=== PATIENT | female | born 1960 | race Caucasian/White ===

== ENCOUNTER 2020-12-10 11:56 | Observation (INO) | payer OTHER ==
[~2020-12-10] VITALS: Ht 144.8 cm; Wt 66.3 kg
[2020-12-10 12:42] LABS: BASOPHILS ABSOLUTE AUTO 0.06 K/mm3 (0.00-0.23); BASOPHILS PERCENT AUTO 1 % (0-2); EOSINOPHILS ABSOLUTE AUTO 0.12 K/mm3 (0.00-0.68); EOSINOPHILS PERCENT AUTO 1 % (0-6); Hematocrit 44.9 % (33.0-51.0); Hemoglobin 14.7 g/dL (11.5-16.0); IMMATURE GRAN ABSOLUTE AUTO 0.02 K/mm3 (0.00-0.10); IMMATURE GRAN PERCENT AUTO 0 % (0-1); LYMPHOCYTES ABSOLUTE AUTO 3.79 K/mm3 (0.84-5.20); LYMPHOCYTES PERCENT AUTO 43 % (21-46); MONOCYTES ABSOLUTE AUTO 0.63 K/mm3 (0.16-1.47); MONOCYTES PERCENT AUTO 7 % (4-13); Mean Corpuscular HGB 30.1 pg (26.0-34.0); Mean Corpuscular HGB Conc 32.7 g/dL (31.5-36.5); Mean Corpuscular Volume 92 fL (80-100); Mean Platelet Volume 12.5 fL (9.1-12.4); NEUTROPHILS ABSOLUTE AUTO 4.15 K/mm3 (1.96-9.15); NEUTROPHILS PERCENT AUTO 47 % (41-73); Platelet Count 205 K/mm3 (150-400); RDW Coefficient Variation 12.4 % (11.7-14.2); RDW Standard Deviation 42.3 fL (35.1-46.3); Red Blood Cell Count 4.89 M/mm3 (3.80-5.20); White Blood Cell Count 8.77 K/mm3 (4.00-11.30)
[2020-12-10 12:52] LABS: Alanine Aminotransfer (ALT/SGP 32 U/L (12-78); Albumin, Blood 3.4 g/dL (3.4-5.0); Albumin/Globulin Ratio 0.8 (0.8-1.8); Alk Phos 146 U/L (50-136); Anion Gap 7 mmol/L (6-16); Aspartate Aminotrans (AST/SGOT 30 U/L (12-37); Bilirubin, Total 0.7 mg/dL (0.1-1.0); Blood Urea Nitrogen 12 mg/dL (8-24); Bun/Creatinine Ratio 17.4 (12.0-20.0); CO2, Blood 22 mmol/L (21-32); Calcium, Blood 8.7 mg/dL (8.5-10.1); Chloride, Blood 111 mmol/L (98-108); Creatinine, Blood 0.69 mg/dL (0.40-1.00); Globulin, Blood 4.5 g/dL (2.2-4.0); Glomerular Filtration Rate >60 (60-); Glucose, Blood 165 mg/dL (70-99); Potassium, Blood 4.3 mmol/L (3.5-5.5); Sodium, Blood 140 mmol/L (136-145); Total Protein, Blood 7.9 g/dL (6.4-8.2); Troponin I <0.015 ng/mL (0.000-0.040)
[2020-12-10] MEDS ORDERED: ATOR80 PO (13:52)
[2020-12-10] MEDS ORDERED: TICA90TA PO (13:52)
[2020-12-10] MEDS ORDERED: Aspir 8181 MG PO (13:52)
[2020-12-10] MEDS ORDERED: METF500 PO (13:53)
[2020-12-10] MEDS ORDERED: ESTR2 PO (13:53)
[2020-12-10] MEDS ORDERED: IRBE75 PO (13:53)
[2020-12-10] MEDS ORDERED: Isosorbide Mono30 MG PO (13:53)
[2020-12-10] MEDS ORDERED: MIRT15 (13:54)
[2020-12-10] MEDS ORDERED: MIRT15 PO (13:54)
[2020-12-10] MEDS ORDERED: NITR.4SL SL (13:54)
[2020-12-10] MEDS ORDERED: PANT40 PO (13:54)
[2020-12-10] MEDS ORDERED: Inderal60 MG PO (13:55)
[2020-12-10] MEDS ORDERED: TRAZ50 PO (13:55)
[2020-12-10] MEDS ORDERED: RANO500T PO (13:55)
--- NOTE | 2020-12-10 16:33 | NUR ---
Echocardiogram completed.
--- NOTE | 2020-12-10 19:45 | NUR ---
SHIFT SUMMARY- PT ADMITTED THROUGH THE ED. PLAN IS FOR HER TO HAVE A CARDIAC STRESS TEST TOMORROW. PT BP LOW ON ARRIVAL AFTER VITALS WERE TAKEN PT STATES SHE HAS STENTS IN BOTH ARMS AND LEGS. PLAN TO USE FOREARM CUFF UNTIL WE SPEAK TO DR. CALLED DR BANDA FOR PARAMETERS FOR BP MEDS SBP WAS LESS THAN 100 ON ARRIVAL AND SEVERAL TIMES IN THE ED SBP WAS LESS THAN 100 PER REPORT. NO ANSWER LEFT A MESSAGE FOR A CALL BACK BUT IT WAS END OF SHIFT. PASSED ON TO NIGHT RN TO CALL NIGHT HOSPITALIST FOR PARAMETERS AND TO DETERMINE IF UPPER ARM BP CHECK IS OK IF THE PT HAS STENTS SHE STATED. NIGHT RN AWARE. PT IN BED SITTING UP TELE IN PLACE SBR AT 55 ON ARRIVAL. NO S&S OF DISTRESS NOPTED AT THE TIME OF SHIFT CHANGE.
--- NOTE | 2020-12-10 20:19 | NUR ---
pt states she is having chest tightness/pain /10 as well as a headache. pt states this has been going on for 4 days and is nothing new. pt is clammy but states it's getting better. vss. sr in the high 60's per television operator. iv morphine given. wcc.
[2020-12-11 02:10] LABS: BASOPHILS ABSOLUTE AUTO 0.06 K/mm3 (0.00-0.23); BASOPHILS PERCENT AUTO 1 % (0-2); EOSINOPHILS ABSOLUTE AUTO 0.17 K/mm3 (0.00-0.68); EOSINOPHILS PERCENT AUTO 2 % (0-6); Hematocrit 40.7 % (33.0-51.0); Hemoglobin 13.5 g/dL (11.5-16.0); IMMATURE GRAN ABSOLUTE AUTO 0.01 K/mm3 (0.00-0.10); IMMATURE GRAN PERCENT AUTO 0 % (0-1); LYMPHOCYTES ABSOLUTE AUTO 4.38 K/mm3 (0.84-5.20); LYMPHOCYTES PERCENT AUTO 57 % (21-46); MONOCYTES ABSOLUTE AUTO 0.53 K/mm3 (0.16-1.47); MONOCYTES PERCENT AUTO 7 % (4-13); Mean Corpuscular HGB 30.5 pg (26.0-34.0); Mean Corpuscular HGB Conc 33.2 g/dL (31.5-36.5); Mean Corpuscular Volume 92 fL (80-100); Mean Platelet Volume 11.9 fL (9.1-12.4); NEUTROPHILS PERCENT AUTO 34 % (41-73); Platelet Count 156 K/mm3 (150-400); RDW Coefficient Variation 12.5 % (11.7-14.2); RDW Standard Deviation 42.4 fL (35.1-46.3); Red Blood Cell Count 4.42 M/mm3 (3.80-5.20); White Blood Cell Count 7.75 K/mm3 (4.00-11.30)
[2020-12-11 02:35] LABS: Alanine Aminotransfer (ALT/SGP 28 U/L (12-78); Albumin, Blood 3.1 g/dL (3.4-5.0); Albumin/Globulin Ratio 0.8 (0.8-1.8); Alk Phos 124 U/L (50-136); Anion Gap 6 mmol/L (6-16); Aspartate Aminotrans (AST/SGOT 23 U/L (12-37); Bilirubin, Total 0.6 mg/dL (0.1-1.0); Blood Urea Nitrogen 16 mg/dL (8-24); Bun/Creatinine Ratio 17.5 (12.0-20.0); CHOL/HDL RATIO 4.5; CO2, Blood 24 mmol/L (21-32); Calcium, Blood 8.7 mg/dL (8.5-10.1); Chloride, Blood 110 mmol/L (98-108); Cholesterol 140 mg/dL (50-200); Creatinine, Blood 0.91 mg/dL (0.40-1.00); Globulin, Blood 3.9 g/dL (2.2-4.0); Glomerular Filtration Rate >60 (60-); Glucose, Blood 130 mg/dL (70-99); HDL Cholesterol 31 mg/dL (>39); LDL/HDL RATIO 1.9; Low Density Lipoprotein Chol 58 mg/dL (0-110); Sodium, Blood 140 mmol/L (136-145); Triglycerides 256 mg/dL (30-160); Very Low Density Lipoprot Chol 51 mg/dL (6-32)
--- NOTE | 2020-12-11 06:12 | NUR ---
SENIOR ADVOCATE SUMMARY PT A/O X4. INDEPENDENT IN ROOM. PT HAD UNTOLERABLE CHEST PAIN X2 OVERNIGHT. MEDICATED WITH IV MORPHINE WHICH HAS HELPED STATED PATIENT. PT STATES SHE HAS CHRONIC CHEST PAIN WITH HX OF MULTIPLE STENTS. PT SOMETIMES GETS CLAMMY WHEN THIS HAPPENS. DENIES RADIATION TO JAW OR SHOULDER. SR IN THE 60'S PER MELTER ASSISTANT. NPO SINCE MIDNIGHT PER MD ORDER. RESTING IN BED WITH EYES CLOSED. CALL LIGHT WITHIN REACH.
--- NOTE | 2020-12-11 17:51 | NUR ---
FIRST PART OF STRESS TEST COMPLETED TODAY, PLAN IS FOR NO CAFFEINE AFTER 2000 AND NPO AFTER MIDNIGHT, PART TWO OF STRESS TEST AT 0800. FAMILY AND PHYSCIAN AWARE. MEDICATED FOR C.P. WITH IV MORPHINE X1 TODAY. NO ACUTE CHANGES NOTED THIS SHIFT, WILL CONTINUE TO MONITOR AND REPORT TO ONCOMING RN
--- NOTE | 2020-12-12 04:27 | NUR ---
ENROLLMENT SPECIALIST SUMMARY PT A&OX4, ABLE TO MAKE NEEDS KNOWN, PLEASANT AND COOPERATIVE TO CARE. PT MEDICATED W/ MORPHINE X1 FOR 5/10 CP THIS SHIFT, PT REPORTED IMMEDIATE RELIEF AFTER MED WAS GIVEN. PT VSS, HRR, TELE NSR 60's. PT CALM AND RESTED IN BED T/O SHIFT. NO C/O SOB OR N&V. PT NPO SINCE MIDNIGHT FOR SCHEDULED 2ND PART OF STRESS TEST TODAY AT 0800. PT CURRENTLY ASLEEP AT THIS TIME. INDEPENDENT IN ROOM. CALL LIGHT WITHIN REACH.
--- NOTE | 2020-12-12 16:18 | NUR ---
DISCHARGE NOTE PT IS A&O AND WAS ABLE TO MAKE NEEDS KNOWN. PT HAD A STRESS TEST IN THE MORNING. AFTER TEST PT REPORTED FEELING NAUSEA. TREATED PER EMAR. PT COMPAINED OF CHEST PAIN OF 4 AND WAS MEDICATED FOR PAIN TWO TIMES THIS SHIFT. REMOVED PT IV, PT TOLERATED IT WELL. WENT OVER D/C PACKET WITH PT AND HELPED HER IN TO WHEEL CHAIR. PT TAKEN OFF FLOOR BY FAMILY AND DIVORCE LEGAL ASSISTANT AND FAMILY MEMBER DROVE HER HOME.
== END 2020-12-12 15:20 | disposition home or self-care (01) ==
LOC: ER 11:56 → MEDS 11:57 → ERHOLD 11:57 → MEDS 17:24
PROVIDERS: Emergency Medicine; ADMIT Internal Medicine
DX: I25.119 Atherosclerotic heart disease of native coronary artery with unspecified angina pectoris (principal); E11.51 Type 2 diabetes mellitus with diabetic peripheral angiopathy without gangrene; I11.9 Hypertensive heart disease without heart failure; E78.5 Hyperlipidemia, unspecified; I25.2 Old myocardial infarction; G47.00 Insomnia, unspecified; F17.210 Nicotine dependence, cigarettes, uncomplicated; Z95.5 Presence of coronary angioplasty implant and graft; Z79.82 Long term (current) use of aspirin; Z79.84 Long term (current) use of oral hypoglycemic drugs
CPT/HCPCS: 36415; 71046; 78452; 80053; 80061; 82947; 83690; 84484; 85025; 93005; 93010; 93017; 93306; 96372; 96374; 96375; 96376; 99285-25; A9270; A9500; G0378; J0706; J1644; J2270; J2405; J2785; J3010

== ENCOUNTER 2021-02-18 08:44 | Day surgery (SDC) | payer OTHER ==
[~2021-02-18] VITALS: Ht 144.8 cm; Wt 62.7 kg
[~2021-02-18 08:44] MED LIST: ATOR80 PO; Aspir 8181 MG PO; ESTR2 PO; IRBE75 PO; Inderal60 MG PO; Isosorbide Mono30 MG PO; METF500 PO; MIRT15; MIRT15 PO; NITR.4SL SL; PANT40 PO; RANO500T PO; TICA90TA PO; TRAZ50 PO
[2021-02-18] MEDS ORDERED: ESTR2 PO (09:31)
[2021-02-18] MEDS ORDERED: METO25ER PO (09:32)
[2021-02-18] MEDS ORDERED: JARDIANCE10 MG PO (09:33)
--- NOTE | 2021-02-18 13:50 | NUR ---
LEFT POST TIBIAL SHEATH REMOVED, MANUAL PRESSURE BEING HELD BY RT. RAISA
--- NOTE | 2021-02-18 14:20 | NUR ---
HEMOSTASIS OBTAINED AFTER 22 MINUTES OF MANUAL PRESSURE HOLD. HUMBERTO PAD AND CLEAR TEGADERM INTACT ON LEFT POST TIB ACCESS SITE. SOFT NON TENDER WITH NO BLEEDING OR OOZING NOTED. PT APPEARS TO BE DROWSY, RESPONDS TO VERBAL STIMULI. RIGHT GROIN SITE WITH ANGIOSEAL DEVICE IN. SITE ALSO SOFT WITH NO BLEEDING. PT APPEARS TO BE RESTING WITH EYES CLOSED, IN SUPINE POSITION, BED IN REVERSE TRENDELENBERG POSITION. CALL LIGHT IN REACH.
--- NOTE | 2021-02-18 16:49 | NUR ---
PT SITTING UP RIGHT, EATING, TOLERATES WITH NO DIFFICULTIES. RIGHT GROIN SITE AND LEFT PEDAL SITE BOTH SOFT NON TENDER WITH NO BLEEDING NOTED. PT FAMILY CALLED TO SET UP A RIDE HOME. CHERRI [place] AT BEDSIDE TO EVALUATE AND DISCUSS PROCEDURE RESULTS WITH PT.
--- NOTE | 2021-02-18 17:26 | NUR ---
PT VERBALIZED UNDERSTANDING OF D/C INSTRUCTIONS, PAPERWORK PROVIDED IN FOLDER. IV REMOVED WITH CATH INTACT. FAMILY ARRIVES TO DRIVE PT HOME. PT AMBULATES WITH SLOW STEADY GAIT, BOTH ARTERIAL SITES APPEAR TO BE SOFT NON TENDER WITH NO BLEEDING OR OOZING NOTED.
== END 2021-02-18 23:21 | disposition home or self-care (01) ==
LOC: MHTC 08:44
DX: E11.51 Type 2 diabetes mellitus with diabetic peripheral angiopathy without gangrene (principal); I70.213 Atherosclerosis of native arteries of extremities with intermittent claudication, bilateral legs; I10 Essential (primary) hypertension; E78.5 Hyperlipidemia, unspecified; F17.210 Nicotine dependence, cigarettes, uncomplicated; Z79.82 Long term (current) use of aspirin
CPT/HCPCS: 37220; 37222; 37225; 75625; 75710; 75716; 76937; 85347; 99152; 99153; C1714; C1725; C1769; C1887; C1894; C2623; J1644; J2250; J3010; J7030; J7050; Q9967

== ENCOUNTER 2021-04-06 08:52 | Day surgery (SDC) | payer OTHER ==
[~2021-04-06] VITALS: Ht 144.8 cm; Wt 68.0 kg
[~2021-04-06 08:52] MED LIST changes: +JARDIANCE10 MG PO; +METO25ER PO
[2021-04-06] MEDS ORDERED: PROP60 PO (09:26)
[2021-04-06] MEDS ORDERED: BUPROPION XL150 M1 PO (09:27)
--- NOTE | 2021-04-06 15:10 | NUR ---
ASSUMING CARE OF PT-SBAR RECIEVED FROM VENTURA Gonzalez RN.
--- NOTE | 2021-04-06 17:05 | NUR ---
HOB UP 30 DEGREES. LEFT GROIN STABLE, BILATERAL PEDAL ACCESSES STABLE, NO BLEEDING. HUMBERTO/TEGADERM DRESSINGS IN PLACE. CALL LIGHT IN REACH. VVS
--- NOTE | 2021-04-06 17:12 | NUR ---
DINNER TRAY SERVED AND SET UP FOR THE PATIENT. SELF FEEDING.
--- NOTE | 2021-04-06 18:45 | NUR ---
DISCHARGE PT REMAINED A&OX3 AND DENIED ANY PAIN DURING RECOVERY. BILATERAL PEDAL AND R GROIN SITES REMAIN CDI-NO HEMATOMA NOTED. PT ABLE TO DRESS SELF INDEPENDANTLY. DISCHARGE PAPERWORK GONE OVER WITH PT. PT VERBALLY STATED THE UNDERSTANDING OF THE DISCHARGE EDUCATION AND DENIED ANY QUESTIONS AT THIS TIME. PT WHEELED OUT BY THIS NURSE.
== END 2021-04-06 22:52 | disposition home or self-care (01) ==
LOC: MHTC 08:52
DX: E11.51 Type 2 diabetes mellitus with diabetic peripheral angiopathy without gangrene (principal); I70.213 Atherosclerosis of native arteries of extremities with intermittent claudication, bilateral legs; I20.8 Other forms of angina pectoris; I83.813 Varicose veins of bilateral lower extremities with pain; I10 Essential (primary) hypertension; E78.5 Hyperlipidemia, unspecified; F17.210 Nicotine dependence, cigarettes, uncomplicated; Z88.6 Allergy status to analgesic agent; Z88.8 Allergy status to other drugs, medicaments and biological substances; Z91.018 Allergy to other foods
CPT/HCPCS: 37224; 37227; 75625; 75710; 75716; 76937; 85347; 99152; 99153; C1714; C1725; C1760; C1769; C1874; C1887; C1894; C2623; J1644; J2060; J2250; J3010; J7030; J7050; Q9967

== ENCOUNTER → 2021-04-20 | Outpatient (CLI) | payer OTHER ==
[~2021-04-20] MED LIST changes: +BUPROPION XL150 M1 PO; +PROP60 PO
== END | disposition home or self-care (01) ==
LOC: PLD 14:03 → LAB SHORT 14:03
DX: L82.1 Other seborrheic keratosis (principal)
CPT/HCPCS: 88305

== ENCOUNTER 2021-05-13 06:47 | Observation (INO) | payer OTHER ==
[~2021-05-13] VITALS: Ht 144.8 cm; Wt 64.3 kg
--- NOTE | 2021-05-13 15:02 | NUR ---
ANGIO PT ARRIVED FROM HEART CENTER TO PCU THIS AFTERNOON. PT HAS A RIGHT RADIAL ACCESS SITE THAT DEVELOPED A HEMATOMA UPON ARRIVAL TO PCU, DEBT RECOVERY OFFICERSHANE FROM H.C. PLACED A SECOND TR BAND ON THE WRIST WE HELD PRESSURE. PT DEVELOPED CP WITH THE HEMATOMA AND WAS GIVEN MORPHINE FOR THE PAIN. PT ALSO HAS A LEFT GROIN SITE WHICH HAS AN INTERNAL ANGIOSEAL AND HAS TEGADERM CHG COVERING THE SITE. VS HAVE BEEN STABLE; PT ON RA AND IN NSR HR 80s. PT IS ALERT AND ORIENTED BUT CONTINUES TO HAVE PAIN
--- NOTE | 2021-05-13 18:50 | NUR ---
SHIFT SUMMARY PT ARRIVED FROM HEART CENTER THIS AFTERNOON. PT HAD A LARGE HEMATOMA FORMING AT THE RIGHT RADIAL SITE, A SECOND TR BAND WAS PLACED AND PRESSURE WAS HELD OVER THE SITE WELL. CARDIOLOGY WAS NOTIFIED AND CAME TO SEE THE SITE AND DETERMINED THAT IT WAS A HEMATOMA AND TO SLOWLY DEFLATE AND REMOVE THE TR BANDS. THE SECOND TR BAND HAS BEEN FULLY DEFLATED BUT NOT REMOVED, THE FIRST IS STILL FULLY INFLATED AND THIS HAS BEEN COMMUNICATED TO NOC SHIFT TO CONTINUE RECOVERY. PT HAS A LEFT GROIN SITE WELL, IT HAS AN ANGIOSEAL AND TEG CHG DRESSING, SCANT AMOUNT OF DRAINAGE, IS IT SOFT BUT IS TENDER WITH SOME BLUE/PURPLE ECCYMOSIS DEVELOPING. VS STABLE, PT ON RA. PT DENIES CP AT THIS TIME, BUT IT DOES COME INTERMITTENTLY. PT RESTING IN BED AT THIS TIME
--- NOTE | 2021-05-14 05:10 | NUR ---
SHIFT SUMMARY PT AXO, PLEASANT. IN SR, WITH NO CHANGES TO TELE NOTED. PT INTERMITTENTLY HAVING MODERATE - SEVERE CP, MORPHINE HELPFUL IN ALLEVIATING THIS PAIN. L GROIN VASCULAR SITE WITH ECCHYMOSIS BUT NO HEMATOMA. L GROIN ARTERIAL SITE PRESENTS THE SAME. R ULNAR SITE COMPLETELY RECOVERED W/OUT INCIDENT THIS SHIFT. BOTH TR BANDS HAVE BEEN REMOVED, PT DENIED NUMBNESS TINGLING DISTAL BAND AND PULSES STRONG AND PALPABLE. PT NPO SINCE MIDNIGHT FOR UPCOMING ANGIOGRAM IN AM. OTHERWISE, PT HAVING DIFFICULT TIME SLEEPING DESPITE TRAZODONE DOSING. OTHERWISE, PT USING CALL LIGHT APPROPRIATELY. UP TO BATHROOM W/OUT INCIDENT. WILL CONTINUE TO MONITOR.
[2021-05-14 05:42] LABS: BASOPHILS ABSOLUTE AUTO 0.03 K/mm3 (0.00-0.23); BASOPHILS PERCENT AUTO 0 % (0-2); EOSINOPHILS ABSOLUTE AUTO 0.03 K/mm3 (0.00-0.68); EOSINOPHILS PERCENT AUTO 0 % (0-6); Hematocrit 34.8 % (33.0-51.0); Hemoglobin 11.3 g/dL (11.5-16.0); IMMATURE GRAN ABSOLUTE AUTO 0.01 K/mm3 (0.00-0.10); IMMATURE GRAN PERCENT AUTO 0 % (0-1); LYMPHOCYTES ABSOLUTE AUTO 1.83 K/mm3 (0.84-5.20); LYMPHOCYTES PERCENT AUTO 27 % (21-46); MONOCYTES ABSOLUTE AUTO 0.59 K/mm3 (0.16-1.47); MONOCYTES PERCENT AUTO 9 % (4-13); Mean Corpuscular HGB 30.2 pg (26.0-34.0); Mean Corpuscular HGB Conc 32.5 g/dL (31.5-36.5); Mean Corpuscular Volume 93 fL (80-100); Mean Platelet Volume 12.2 fL (9.1-12.4); NEUTROPHILS ABSOLUTE AUTO 4.37 K/mm3 (1.96-9.15); NEUTROPHILS PERCENT AUTO 64 % (41-73); Platelet Count 151 K/mm3 (150-400); RDW Coefficient Variation 12.9 % (11.7-14.2); RDW Standard Deviation 44.2 fL (35.1-46.3); Red Blood Cell Count 3.74 M/mm3 (3.80-5.20); White Blood Cell Count 6.86 K/mm3 (4.00-11.30)
[2021-05-14 06:01] LABS: Anion Gap 4 mmol/L (6-16); Blood Urea Nitrogen 14 mg/dL (8-24); Bun/Creatinine Ratio 18.7 (12.0-20.0); CO2, Blood 23 mmol/L (21-32); Calcium, Blood 8.2 mg/dL (8.5-10.1); Chloride, Blood 112 mmol/L (98-108); Creatinine, Blood 0.75 mg/dL (0.40-1.00); Glomerular Filtration Rate >60 (60-); Glucose, Blood 121 mg/dL (70-99); Potassium, Blood 3.9 mmol/L (3.5-5.5); Sodium, Blood 139 mmol/L (136-145)
--- NOTE | 2021-05-14 10:31 | NUR ---
CARDIOLOGY CONSULT PT WAS VISITED BY DR OVERTON THIS MORNING WHO HAS DETERMINED THAT THE CHEST PAIN IS NOT CARDIAC RELATED. THE PT REPORTS HAVING THIS CONSTANT CHEST PAIN FOR 5 YEARS WITH NO RELIEF WITH MEDICATION. PT HAS SIGNIFICANT CARDIAC HISTORY, STENT PLACEMENTS, STEMI, CAD. PT HAD ANGIO YESTERDAY AND HAS A RADIAL SITE WELL A FEM SITE. THE FEM SITE HAS SOME SWELLING AND SIGNIFICANT BRUISING BUT NO DRAINAGE AND IS SOFT. CARDIOLOGY IS NOT RECCOMENDING ANGIO OR OPEN SURGERY AT THIS TIME BUT HAS INSTEAD CONSULTED A HOSPITALIST. DR VALDIVIA HAS BEEN NOTIFIED
--- NOTE | 2021-05-14 18:48 | NUR ---
SHIFT SUMMARY PT HAS CONTINUED TO HAVE INTERMITTENT CHEST PAIN. PT REFUSED HER IMDUR AND RENEXA THIS MORNING STATING "I HAVE A TOLERANCE TO THOSE MEDS, I'VE BEEN ON THEM FOR 5 YEARS, THEY DON'T WORK ANY MORE." PT HAS BEEN STARTED ON ROXICODONE FOR PAIN. CARDIOLOGY SAW THE PT THIS MORNING AND REQUESTED A HOSPITALIST CONSULT TO DO A NON-CARDIAC WORK UP OF THE CP SINCE IT HAS BEEN CONSTANT FOR 5 YEARS. PT WAS GIVEN A GI COCKTAIL THIS AFTERNOON SEPARATE FROM PAIN MEDICATION, PT REPORTED HER PAIN AT A 6 IN HER CHEST PRIOR TO THE GI COCKTAIL, APPROXIMATELY TWO HOURS AFTER SHE REPORTED HER CP BEING UNCHANGED. PT THEN REQUESTED THE ROXICODONE AGAIN STATING THAT IT WAS VERY HELPFUL. PT HAD A CT PE STUDY COMPLETED TODAY. TROP IS SLIGHTLY ELEVATED, BP IS SOFT, PT ON RA. PT IS RESTING IN BED AT THIS TIME
--- NOTE | 2021-05-15 04:51 | NUR ---
SHIFT SUMMARY NO ACUTE CHANGES THIS SHIFT. VSS. NO CHANGES TO TELE NOTED. PT CONTINUES WITH, AT TIMES, SEVERE CP. PT NEVER CALLS FOR PAIN MEDS BUT THIS RN WILL WALK IN TO PT CLUTCHING CHEST. WHEN ASKED OF SHE NEEDS PAIN MEDS, PT NODS YES. PT STATES SHE MAY LEAVE TODAY DEPENDING ON DOCTORS DESPITE CP. PT FEELS CP IS STILL CARDIAC RELATED DESPITE WHAT DR OVERTON BIOTECHNICIAN STATED IN PREVIOUS DAYS CONVERSATION. OTHERWISE, PT'S ANGIO SITES ARE ALL HEALING WELL, EXXHYMPOSIS NOTED BUT NO HEMATOMAS. PT RESTING OFF AND ON WHEN NOT IN PAIN. WILL CONTINUE TO MONITOR UNTIL SHIFT CHANGE.
[2021-05-15 06:26] LABS: Hematocrit 34.4 % (33.0-51.0); Hemoglobin 11.1 g/dL (11.5-16.0); Mean Corpuscular HGB 30.7 pg (26.0-34.0); Mean Corpuscular HGB Conc 32.3 g/dL (31.5-36.5); Mean Corpuscular Volume 95 fL (80-100); Mean Platelet Volume 12.3 fL (9.1-12.4); Platelet Count 117 K/mm3 (150-400); RDW Coefficient Variation 12.9 % (11.7-14.2); RDW Standard Deviation 45.1 fL (35.1-46.3); Red Blood Cell Count 3.62 M/mm3 (3.80-5.20); White Blood Cell Count 5.26 K/mm3 (4.00-11.30)
[2021-05-15 06:55] LABS: Anion Gap 7 mmol/L (6-16); Blood Urea Nitrogen 18 mg/dL (8-24); Bun/Creatinine Ratio 21.4 (12.0-20.0); CO2, Blood 22 mmol/L (21-32); Calcium, Blood 8.1 mg/dL (8.5-10.1); Chloride, Blood 111 mmol/L (98-108); Creatinine, Blood 0.84 mg/dL (0.40-1.00); Glomerular Filtration Rate >60 (60-); Glucose, Blood 99 mg/dL (70-99); Potassium, Blood 3.8 mmol/L (3.5-5.5); Sodium, Blood 140 mmol/L (136-145); Troponin I 0.157 ng/mL (0.000-0.040)
[2021-05-15 07:08] LABS: BASOPHILS PERCENT MAN 2 % (0-2); EOSINOPHILS PERCENT MAN 2 % (0-6); LYMPHOCYTES PERCENT MAN 59 % (21-46); MONOCYTES ABSOLUTE MAN 0.26 K/mm3 (0.16-1.47); MONOCYTES PERCENT MAN 5 % (4-13); NEUTROPHILS ABSOLUTE MAN 1.68 K/mm3 (1.96-9.15); SEG NEUTROPHILS PERCENT MAN 32 % (41-73); TOTAL CELLS COUNTED 100
--- NOTE | 2021-05-15 08:00 | NUR ---
PT LAYING ON BED, AWAKE A/OX3, COOPERATION WITH CARE, FOLLOWS COMMANDS WELL, REPORTS CHEST PAIN THAT SHE HAS BEEN DEALING WITH FOR SIX YRS. WILL MEDICATE FOR PAIN, LUNGS ARE CLEAR T/O, RESP EVEN AND UNLABORED, NO COUGH NOTED, HRR, TELE IN PLACE RUNNING SR IN THE 80'S, NO EDEMA NOTED, PPP+2, CAP REFILL <3SEC, VS STABLE, AFEBRILE, IV SITE IS CLEAR AND PANTENT, BTX4, ABD FLAT SOFT NONTENDER, VOIDS WITHOUT DIFF, SKIN C/W/D, MAEW, VIKAS, CALL LIGHT IN REACH.
--- NOTE | 2021-05-15 13:09 | NUR ---
PT IS BEING DISCHARGED TO HOME, HER CATH SITE TO HER RIGHT ARM IS A BIT SWOLLEN BUT NO LEAKING, DENIES NUMBNESS/TINGLING TO FINGERS, OCCLUSIVE DRESSING TO JUANA SITE, SITES TO RIGHT AND LEFT GROIN ARE VERY BRUISED AND LEFT IS AMANDA TENDER, BUT SITE IS NOT HARD OR LEAKING. SHE KNOWS SHE IS DISCHARGED AND HAPPY TO GO HOME. CALL LIGHT IN REACH.
--- NOTE | 2021-05-15 13:55 | NUR ---
IV WAS REMOVED INTACT, WENT OVER DISCHARGE INSTRUCTIONS WITH HER , SHE VERBALIZED UNDERSTANDING, ONE MEDICATION FOR OXYCODONE THAT WAS GIVEN TO HER, OTHERWISE HER SAME HOME REGIMEN, LEFT VIA WHEELCHAIR WITH TAXATION ECONOMIST IN ATTENDENCE.
== END 2021-05-15 13:55 | disposition home or self-care (01) ==
LOC: MHTC 06:47 → PCU 12:49 → MHTC 12:50 → PCU 12:50 → MHTC 05-15 11:38 → PCU 05-15 11:42
PROVIDERS: Internal Medicine; Internal Medicine Cardiovascular Disease
PROC: 027034Z Dilation of Coronary Artery, One Artery with Drug-eluting Intraluminal Device, Percutaneous Approach (ICD-10-PCS; principal; 2021-05-15)
PROC: B2111ZZ Fluoroscopy of Multiple Coronary Arteries using Low Osmolar Contrast (ICD-10-PCS; 2021-05-15)
DX: T82.855A Stenosis of coronary artery stent, initial encounter (principal); I25.118 Atherosclerotic heart disease of native coronary artery with other forms of angina pectoris; I25.2 Old myocardial infarction; I10 Essential (primary) hypertension; E78.5 Hyperlipidemia, unspecified; E11.51 Type 2 diabetes mellitus with diabetic peripheral angiopathy without gangrene; G89.4 Chronic pain syndrome; K21.9 Gastro-esophageal reflux disease without esophagitis; Z95.820 Peripheral vascular angioplasty status with implants and grafts; Z88.8 Allergy status to other drugs, medicaments and biological substances; Z88.6 Allergy status to analgesic agent; Z79.82 Long term (current) use of aspirin; Z79.890 Hormone replacement therapy; Z79.899 Other long term (current) drug therapy
CPT/HCPCS: 36415; 71260; 76937; 80048; 83036; 84484; 85025; 85347; 92920; 92921; 93005; 93010; 93454; 96374; 96375; 96376; 99152; 99153; A9270; C1725; C1760; C1769; C1874; C1887; C1894; C9600; G0378; J0461; J1644; J2250; J2270; J2405; J3010; J7030; J7040; J7050; Q9967

== ENCOUNTER 2021-07-27 06:35 | Day surgery (SDC) | payer OTHER ==
[~2021-07-27] VITALS: Ht 144.8 cm; Wt 64.0 kg
[~2021-07-27 06:35] MED LIST changes: +XARELTO20 MG PO
[2021-07-27] MEDS ORDERED: AMLO5 PO (07:05)
[2021-07-27] MEDS ORDERED: ESTR2 PO (07:07)
--- NOTE | 2021-07-27 12:07 | NUR ---
DISCHARGE PT AMBULATES TO RESTROOM AND DRESSED SELF WITH NO COMPLICATIONS. PT WITH L DP ACCESS ONLY. TEGADERM ON ACCESS SITE. NO BLEEDING, OOZING OR HEMATOMA NOTED. PT DENIES ANY PAIN IN HER FOOT BUT DOES REPORT PAIN IN HER L THIGH. MD AWARE. PT INFORMED TO TAKE HER PAIN MEDICATION WHEN SHE IS HOME. PT AGREES TO DO SO. PT STATES HER UNDERSTANDING OD SITE CARE AND DC INSTRUCTIONS AND DENIES ANY QUESTIONS OR CONCERNS UPON DC. VSS. IV DCD WITH CATH IN TACT. PT TAKEN TO EXIT VIA WHEELCHAIR WHERE AUNT WAS WAITING WITH VEHICLE.
== END 2021-07-27 12:00 | disposition home or self-care (01) ==
LOC: MHTC 06:35
DX: E11.51 Type 2 diabetes mellitus with diabetic peripheral angiopathy without gangrene (principal); I70.222 Atherosclerosis of native arteries of extremities with rest pain, left leg; I11.0 Hypertensive heart disease with heart failure; I50.9 Heart failure, unspecified; I25.2 Old myocardial infarction; I25.119 Atherosclerotic heart disease of native coronary artery with unspecified angina pectoris; E78.5 Hyperlipidemia, unspecified; Z87.891 Personal history of nicotine dependence; Z95.9 Presence of cardiac and vascular implant and graft, unspecified; Z79.84 Long term (current) use of oral hypoglycemic drugs; Z88.6 Allergy status to analgesic agent; Z88.8 Allergy status to other drugs, medicaments and biological substances; Z91.018 Allergy to other foods
CPT/HCPCS: 76937; 99152; 99153; C1714; C1725; C1769; C1874; C1887; C1894; C2623; J1644; J2250; J3010; J7030; J7050; Q9967

== ENCOUNTER 2021-09-21 09:59 | Day surgery (SDC) | payer OTHER ==
[~2021-09-21] VITALS: Ht 144.8 cm; Wt 63.0 kg
[~2021-09-21 09:59] MED LIST changes: +AMLO5 PO
[2021-09-21] MEDS ORDERED: OXYC5 PO (11:06)
[2021-09-21] MEDS ORDERED: OXYC10TA19 PO (13:46)
--- NOTE | 2021-09-21 13:47 | NUR ---
PT C/O LEFT LEG PAIN. DR JUÁREZ INFORMED; SEE NEW ORDERS. PT STATES SHE TAKES 10 MG OXYCODONE EVERY SIX HOURS FOR PAIN NEEDED.
--- NOTE | 2021-09-21 14:12 | NUR ---
PT STATES HER LEFT LEG PAIN IS 9/10.
--- NOTE | 2021-09-21 17:05 | NUR ---
PT TO RECOVERY AFTER PROCEDURE. PT AWAKE AND CONVERSING APPROPRIATELY, REPORTS L LEG DISCOMFORT 7/10, REPORTS THIS IS CHRONIC. MONITOR SR 70'S, B/P 116/64, TEMP 99, SPO2 98% RA. L PEDAL ACCESS NO SWELLING/HEMATOMA, HUMBERTO AND TEGADERM DRSG INTACT, DP 1+.
--- NOTE | 2021-09-21 18:45 | NUR ---
PT AMB TO BATHROOM, GAIT STEADY, SITE UNCHANGED. PT DRESSED SELF WITHOUT ISSUE, SITE UNCHANGED, IV REMOVED-CANNULA INTACT.
--- NOTE | 2021-09-21 18:55 | NUR ---
PT AND CAREGIVER RECEIVED DISCHARGE INSTRUCTIONS, MED LIST AND AFTER CARE INSTRUCTIONS; VERBALIZED GOOD UNDERSTANDING. PT LEFT FACILITY VIA W/C, CONDITION STABLE.
== END 2021-09-21 18:55 | disposition home or self-care (01) ==
LOC: MHTC 09:59
DX: E11.51 Type 2 diabetes mellitus with diabetic peripheral angiopathy without gangrene (principal); I70.222 Atherosclerosis of native arteries of extremities with rest pain, left leg; I70.213 Atherosclerosis of native arteries of extremities with intermittent claudication, bilateral legs; I11.0 Hypertensive heart disease with heart failure; I50.9 Heart failure, unspecified; E78.5 Hyperlipidemia, unspecified; Z79.82 Long term (current) use of aspirin; Z79.01 Long term (current) use of anticoagulants; Z87.891 Personal history of nicotine dependence
CPT/HCPCS: 76937; 99152; 99153; A9270; C1725; C1769; C1887; C1894; J1644; J2250; J3010; J7030; J7050; Q9967

== ENCOUNTER 2022-01-03 06:30 | Day surgery (SDC) | payer OTHER ==
[~2022-01-03] VITALS: Ht 144.8 cm; Wt 62.0 kg
[~2022-01-03 06:30] MED LIST changes: +OXYC10TA19 PO; +OXYC5 PO
[2022-01-03] MEDS ORDERED: HYDACE10B PO (06:53)
--- NOTE | 2022-01-03 12:05 | NUR ---
PT ATE LUNCH. UP AND GETTING DRESSED AT THIS TIME. R PT SITE REMAINS STABLE.
--- NOTE | 2022-01-03 12:28 | NUR ---
PT C/O R LOWER LEG PAIN. AWARE 2 HALIE'S GIVEN FOR RIDE HOME. PT DRESSED. DISCHARGE INSTRUCTIONS REVIEWED WITH PT. PT VERBALIZES UNDERSTANDING OF INSTRUCTIONS. SALINE LOCK REMOVED WITH CATHETER INTACT. R PT SITE STABLE. PT TO PRIVATE VEHICLE PER W/C WITH ONE STAFF.
== END 2022-01-03 12:30 | disposition home or self-care (01) ==
LOC: MHTC 06:30
DX: E11.51 Type 2 diabetes mellitus with diabetic peripheral angiopathy without gangrene (principal); I70.213 Atherosclerosis of native arteries of extremities with intermittent claudication, bilateral legs; E11.69 Type 2 diabetes mellitus with other specified complication; M79.604 Pain in right leg; I11.0 Hypertensive heart disease with heart failure; I50.9 Heart failure, unspecified; Z88.6 Allergy status to analgesic agent; Z91.018 Allergy to other foods; Z87.891 Personal history of nicotine dependence; Z79.01 Long term (current) use of anticoagulants
CPT/HCPCS: 76937; 99152; 99153; A9270; C1714; C1725; C1769; C1887; C1894; C2623; J1644; J2250; J3010; J7030; J7050; Q9967

== ENCOUNTER 2022-01-13 11:23 | Emergency (ER) | payer OTHER ==
[~2022-01-13] VITALS: Ht 144.8 cm; Wt 61.2 kg
[~2022-01-13 11:23] MED LIST changes: +HYDACE10B PO
[2022-01-13] MEDS ORDERED: AMOCLA875 PO (11:43)
[2022-01-13] MEDS ORDERED: CODEINE-GUAIFE120 M1 PO (11:44)
== END 2022-01-13 11:45 | disposition home or self-care (01) ==
LOC: ER 11:23
DX: R05.9 Cough, unspecified (principal); R50.9 Fever, unspecified; R09.81 Nasal congestion; I25.2 Old myocardial infarction; F17.210 Nicotine dependence, cigarettes, uncomplicated; Z98.890 Other specified postprocedural states; Z79.899 Other long term (current) drug therapy; Z88.6 Allergy status to analgesic agent; Z88.8 Allergy status to other drugs, medicaments and biological substances; Z88.5 Allergy status to narcotic agent; Z91.018 Allergy to other foods; Z79.82 Long term (current) use of aspirin
CPT/HCPCS: 99282

== ENCOUNTER 2022-04-03 14:06 | Inpatient (IN) | payer OTHER ==
[~2022-04-03] VITALS: Ht 142.2 cm; Wt 53.2 kg
[~2022-04-03 14:06] MED LIST changes: +AMOCLA875 PO; +CODEINE-GUAIFE120 M1 PO
[2022-04-03 15:45] LABS: BASOPHILS ABSOLUTE AUTO 0.04 K/mm3 (0.00-0.23); BASOPHILS PERCENT AUTO 1 % (0-2); EOSINOPHILS ABSOLUTE AUTO 0.16 K/mm3 (0.00-0.68); EOSINOPHILS PERCENT AUTO 2 % (0-6); Hematocrit 39.3 % (33.0-51.0); Hemoglobin 12.2 g/dL (11.5-16.0); IMMATURE GRAN ABSOLUTE AUTO 0.01 K/mm3 (0.00-0.10); IMMATURE GRAN PERCENT AUTO 0 % (0-1); LYMPHOCYTES PERCENT AUTO 29 % (21-46); MONOCYTES ABSOLUTE AUTO 0.66 K/mm3 (0.16-1.47); MONOCYTES PERCENT AUTO 10 % (4-13); Mean Corpuscular HGB 29.9 pg (26.0-34.0); Mean Corpuscular Volume 96 fL (80-100); Mean Platelet Volume 12.2 fL (9.1-12.4); NEUTROPHILS ABSOLUTE AUTO 3.93 K/mm3 (1.96-9.15); NEUTROPHILS PERCENT AUTO 58 % (41-73); Platelet Count 210 K/mm3 (150-400); RDW Coefficient Variation 15.2 % (11.7-14.2); RDW Standard Deviation 54.4 fL (35.1-46.3); Red Blood Cell Count 4.08 M/mm3 (3.80-5.20)
[2022-04-03 16:08] LABS: Albumin, Blood 2.7 g/dL (3.4-5.0); Albumin/Globulin Ratio 0.5 (0.8-1.8); Bilirubin, Total 0.3 mg/dL (0.1-1.0); Bun/Creatinine Ratio 32.3 (12.0-20.0); Calcium, Blood 8.9 mg/dL (8.5-10.1); Creatinine, Blood 0.37 mg/dL (0.40-1.00); Potassium, Blood 3.8 mmol/L (3.5-5.5); Total Protein, Blood 7.7 g/dL (6.4-8.2)
[2022-04-03] MEDS ORDERED: MIRALAX17 GM PO (18:01)
[2022-04-03] MEDS ORDERED: MELA3 PO (18:01)
[2022-04-03] MEDS ORDERED: LIDO700A20 TOP (18:01)
[2022-04-03] MEDS ORDERED: HYDMOR2 PO (18:01)
[2022-04-03] MEDS ORDERED: LYRICA PO (18:02)
[2022-04-03] MEDS ORDERED: OMEP20ER PO (18:02)
[2022-04-03] MEDS ORDERED: MULVITA PO (18:02)
[2022-04-03] MEDS ORDERED: ACET325 PO (18:03)
[2022-04-04 05:02] LABS: BASOPHILS ABSOLUTE AUTO 0.05 K/mm3 (0.00-0.23); BASOPHILS PERCENT AUTO 1 % (0-2); EOSINOPHILS ABSOLUTE AUTO 0.25 K/mm3 (0.00-0.68); EOSINOPHILS PERCENT AUTO 5 % (0-6); Hematocrit 36.7 % (33.0-51.0); Hemoglobin 11.4 g/dL (11.5-16.0); IMMATURE GRAN ABSOLUTE AUTO 0.01 K/mm3 (0.00-0.10); IMMATURE GRAN PERCENT AUTO 0 % (0-1); LYMPHOCYTES PERCENT AUTO 35 % (21-46); MONOCYTES PERCENT AUTO 12 % (4-13); Mean Corpuscular HGB 30.3 pg (26.0-34.0); Mean Corpuscular HGB Conc 31.1 g/dL (31.5-36.5); Mean Corpuscular Volume 98 fL (80-100); Mean Platelet Volume 12.5 fL (9.1-12.4); NEUTROPHILS ABSOLUTE AUTO 2.44 K/mm3 (1.96-9.15); NEUTROPHILS PERCENT AUTO 47 % (41-73); Platelet Count 169 K/mm3 (150-400); RDW Coefficient Variation 15.1 % (11.7-14.2); RDW Standard Deviation 54.4 fL (35.1-46.3); Red Blood Cell Count 3.76 M/mm3 (3.80-5.20); White Blood Cell Count 5.15 K/mm3 (4.00-11.30)
--- NOTE | 2022-04-04 05:31 | NUR ---
SHIFT SUMMARY: ED ADMIT FOR SURGICAL SITE INFECTION TO LEFT STUMP. PATIENT HAD AMP 03/10. SUTURES IN PLACE, SMALL AMOUNT OF SEROSANGUINEOUS EXTUDATE. PHOTOS TAKEN AND PLACED IN CHART. PATIENT STATES HAVING IT ELMA CAUSING IRRITATION SUTURES GET CAUGH ON LINEN. COVERED WITH ABD PAD AND JOSUE BANDAGE. 07/09 PAIN TO LEFT STUMP STATES MEDICATION GIVEN IN ED HAD NO EFFECT. MD CONTACED PER PATIENT REQUEST TO RESUME HOME PAIN MEDICATION REGIMEN. PATIENT DID SHOW ME PHOTO ON HER PHONE WITH CURRENT MEDICATIONS, MED REC ACCURATE. MD CONTACTED NEW ORDERS OBTAINED. PATIENT NPO SINCE MIDNIGHT FOR ANTICIPATED I&D TODAY. SEE SHIFT ASSESSMENT FOR FURTHER DETAILS.
[2022-04-04 05:36] LABS: Calcium, Blood 8.9 mg/dL (8.5-10.1); Creatinine, Blood 0.39 mg/dL (0.40-1.00); Potassium, Blood 3.3 mmol/L (3.5-5.5)
[2022-04-04 11:51] LABS: Influenza A, PCR NEGATIVE (NEGATIVE); Influenza B, PCR NEGATIVE (NEGATIVE); Resp Syncytial Virus, PCR NEGATIVE (NEGATIVE); SARS-Cov-2 (COVID-19) PCR, MMC NEGATIVE (NEGATIVE)
--- NOTE | 2022-04-04 16:08 | NUR ---
History, Chart, Medications and Allergies reviewed before start of procedure. Lungs clear T/O to Auscultation. Patient confirms NPO status and agrees with scheduled surgery. Pre-Op teaching done. Pt verbalizes understanding.
--- NOTE | 2022-04-04 16:42 | NUR ---
Upon responding to a spiritual care referral, I visit pt. Pt is in surgery and her friend Danni is bedside. I provide therapeutic listening and a calming presence. Danni responds well and shows signs of being comforted.
--- NOTE | 2022-04-04 16:59 | NUR ---
04/04/22 1659 Vivi Villalta NO PREOP ANTIBIOTICS ORDERED PATIENT IS ON SCHEDULED ANTIBIOTICS PER .
--- NOTE | 2022-04-04 18:23 | NUR ---
SHIFT SUMMARY PT AWAKE DURING SHIFT REPORT THIS AM. NPO FOR SX TODAY. DR TEMPLE AND LATER DR ROCHA IN TO SEE PT EARLY. DR HART BY AT LUNCH TIME TO OBTAIN SIGNED CONSENTS. PT TAKEN TO SX FOR I&D OF LLE STUMP AND JUST RETURNED. PT TOLERATED WELL. PER JUAN RN, DR HART OPENED STUMP AND FOUND IT TO BE BETTER THAN ANTICIPATED AND WITH NO BONE INVOLMENT. WOUND VAC PLACED FOR HEALING. IV ABX GIVEN ALL DAY AND TO BE CONTINUED. PT SITTING UP EATING DINNER AT THIS TIME, AND TALKING ON PHONE. NO C/O. DENIED FURTHER NEEDS AT THIS TIME. CALL LT IN REACH.
--- NOTE | 2022-04-05 02:58 | NUR ---
SHIFT SUMMARY: NO SIGNIFICANT EVENTS ON NOC. PAIN TREATED PER EMAR. WOUND VAC TO LEFT STUMP WITH SEROUSANGINEOUS EXUDATE. PATIENT ENDORSES BURNING/PULLING AT INCISION SITE. INTERRUPTED SLEEP DUE TO PAIN. SEE SHIFT ASSESSMENT FOR FURTHER DETAILS.
[2022-04-05 08:23] LABS: Hematocrit 38.9 % (33.0-51.0); Hemoglobin 11.8 g/dL (11.5-16.0); Mean Corpuscular HGB 29.8 pg (26.0-34.0); Mean Corpuscular HGB Conc 30.3 g/dL (31.5-36.5); Mean Corpuscular Volume 98 fL (80-100); Mean Platelet Volume 12.3 fL (9.1-12.4); Platelet Count 200 K/mm3 (150-400); RDW Coefficient Variation 14.9 % (11.7-14.2); RDW Standard Deviation 53.7 fL (35.1-46.3); Red Blood Cell Count 3.96 M/mm3 (3.80-5.20)
[2022-04-05 08:32] LABS: Bun/Creatinine Ratio 9.8 (12.0-20.0); Calcium, Blood 9.1 mg/dL (8.5-10.1); Creatinine, Blood 0.51 mg/dL (0.40-1.00); Potassium, Blood 3.5 mmol/L (3.5-5.5)
[2022-04-05 08:40] LABS: Vancomycin, Trough 12.1 ug/mL (5.0-10.0)
[2022-04-05 08:46] LABS: BASOPHILS ABSOLUTE MAN 0.15 K/mm3 (0.00-0.23); BASOPHILS PERCENT MAN 3 % (0-2); EOSINOPHILS ABSOLUTE MAN 0.15 K/mm3 (0.00-0.68); EOSINOPHILS PERCENT MAN 3 % (0-6); LYMPHOCYTES ABSOLUTE MAN 1.53 K/mm3 (0.84-5.20); LYMPHOCYTES PERCENT MAN 30 % (21-46); MONOCYTES ABSOLUTE MAN 0.45 K/mm3 (0.16-1.47); MONOCYTES PERCENT MAN 9 % (4-13); SEG NEUTROPHILS PERCENT MAN 55 % (41-73); TOTAL CELLS COUNTED 100
--- NOTE | 2022-04-05 15:54 | NUR ---
SHIFT SUMMARY PT AWAKE AT START OF SHIFT, RESTING QUIETLY WATCHING TV. UP TO BSC TO VOID WITH 1P ASSIST. DR TEMPLE IN TO SEE PT AND DISCUSS PLAN OF CARE. NEW ORDERS PLACED. DR VILLELA ALSO LATER IN TO SEE PT. IV ABX INFUSING. IV SITE TO RW LATER STARTED LEAKING. PG TO RUSS PLACED BY SULLY RN. PT THEN REQUESTED PAIN MEDICATION; GIVEN PER EMAR. AUTOMATION AND CONTROLS INSTRUCTOR AND FRIEND THEN IN TO SEE PT FOR THE AFTERNOON. CARE MANAGERS ALSO HERE TODAY TO TALK TO PT ABOUT D/C NEEDS. UP TO CHAIR FOR MEALS. WOUND VAC TO LLE STUMP; WNL'S. PT SEEMS TO BE DOING WELL, LOOKING FORWARD TO GOING HOME. TALKING ON PHONE MOST OF THE DAY AGAIN TODAY. CALL LT IN REACH.
--- NOTE | 2022-04-06 04:35 | NUR ---
SHIFT SUMMARY PT COMPLAINS OF PAIN TO L LEG STUMP. PT MEDICATED ABLE PER EMAR. CALL LIGHT WITHIN REACH AND NO ACUTE CHANGES TO PT CONDITION.
[2022-04-06 04:41] LABS: Hematocrit 35.4 % (33.0-51.0); Hemoglobin 10.9 g/dL (11.5-16.0); Mean Corpuscular HGB 29.4 pg (26.0-34.0); Mean Corpuscular HGB Conc 30.8 g/dL (31.5-36.5); Mean Corpuscular Volume 95 fL (80-100); Mean Platelet Volume 11.7 fL (9.1-12.4); Platelet Count 180 K/mm3 (150-400); RDW Coefficient Variation 14.7 % (11.7-14.2); RDW Standard Deviation 51.6 fL (35.1-46.3); Red Blood Cell Count 3.71 M/mm3 (3.80-5.20); White Blood Cell Count 5.77 K/mm3 (4.00-11.30)
[2022-04-06 05:04] LABS: Bun/Creatinine Ratio 22.6 (12.0-20.0); Calcium, Blood 8.8 mg/dL (8.5-10.1); Creatinine, Blood 0.4 mg/dL (0.40-1.00); Potassium, Blood 3.6 mmol/L (3.5-5.5)
[2022-04-06 06:06] LABS: BASOPHILS PERCENT MAN 0 % (0-2); EOSINOPHILS ABSOLUTE MAN 0.28 K/mm3 (0.00-0.68); EOSINOPHILS PERCENT MAN 5 % (0-6); LYMPHOCYTES ABSOLUTE MAN 2.13 K/mm3 (0.84-5.20); LYMPHOCYTES PERCENT MAN 37 % (21-46); MONOCYTES ABSOLUTE MAN 0.63 K/mm3 (0.16-1.47); MONOCYTES PERCENT MAN 11 % (4-13); NEUTROPHILS ABSOLUTE MAN 2.71 K/mm3 (1.96-9.15); SEG NEUTROPHILS PERCENT MAN 47 % (41-73); TOTAL CELLS COUNTED 100
--- NOTE | 2022-04-06 14:01 | NUR ---
History, Chart, Medications and Allergies reviewed before start of procedure.Pre-Op teaching done. Pt verbalizes understanding. Lungs clear T/O to Auscultation.
--- NOTE | 2022-04-06 14:51 | NUR ---
04/06/22 1451 Jovan Potter PT ON SCHEDULED ANTIBIOTICS
--- NOTE | 2022-04-06 16:45 | NUR ---
AOX4, CAN MAKE NEEDS KNOWN, COOPERATIVE WITH MEDICATION AND CARE. SBA TO 1-PERSON ASST FOR TRANSFERS. PT WAS NPO THIS MORNING FOR SX; WOUND CLOSURE. WOUND VAC REMOVED DURING SX THIS AFTERNOON. PT RECEIVED IV PAIN MEDS DURING SX, CURRENTLY STATING TOLERABLE PAIN LEVEL. CURRENTLY EATING LUNCH THAT WAS BEING HELD FOR HER, NO ISSUES WITH EATING. NO ACUTE CHANGES. CALL-LIGHT WITHIN REACH. BED IN LOWEST POSITION.
[2022-04-06 21:16] LABS: Vancomycin, Trough 10.5 ug/mL (5.0-10.0)
[2022-04-07 05:08] LABS: BASOPHILS ABSOLUTE AUTO 0.02 K/mm3 (0.00-0.23); BASOPHILS PERCENT AUTO 0 % (0-2); EOSINOPHILS ABSOLUTE AUTO 0.27 K/mm3 (0.00-0.68); EOSINOPHILS PERCENT AUTO 5 % (0-6); Hematocrit 32.9 % (33.0-51.0); Hemoglobin 10.4 g/dL (11.5-16.0); Mean Corpuscular HGB 30.1 pg (26.0-34.0); Mean Corpuscular HGB Conc 31.6 g/dL (31.5-36.5); Mean Corpuscular Volume 95 fL (80-100); Mean Platelet Volume 12.2 fL (9.1-12.4); Platelet Count 174 K/mm3 (150-400); RDW Coefficient Variation 14.8 % (11.7-14.2); RDW Standard Deviation 51.9 fL (35.1-46.3); Red Blood Cell Count 3.46 M/mm3 (3.80-5.20); White Blood Cell Count 5.25 K/mm3 (4.00-11.30)
--- NOTE | 2022-04-07 05:10 | NUR ---
SHIFT SUMMARY PT HAD SURGERY YESTERDAY TO CLOSE ABOVE KNEE AMPUTATION WOUND. DRESSING DID COME OFF LAST NIGHT, BUT WAS REPLACED. PT COMPLAINS OF PAIN AND IS MEDICATED PER EMAR NECESSARY. CALL LIGHT IS WITHIN HER REACH.
[2022-04-07 05:32] LABS: IMMATURE GRAN ABSOLUTE AUTO 0.01 K/mm3 (0.00-0.10); IMMATURE GRAN PERCENT AUTO 0 % (0-1); LYMPHOCYTES ABSOLUTE AUTO 2.17 K/mm3 (0.84-5.20); LYMPHOCYTES PERCENT AUTO 41 % (21-46); MONOCYTES ABSOLUTE AUTO 0.49 K/mm3 (0.16-1.47); MONOCYTES PERCENT AUTO 9 % (4-13); NEUTROPHILS ABSOLUTE AUTO 2.29 K/mm3 (1.96-9.15); NEUTROPHILS PERCENT AUTO 44 % (41-73)
[2022-04-07 05:53] LABS: Calcium, Blood 8.8 mg/dL (8.5-10.1); Creatinine, Blood 0.47 mg/dL (0.40-1.00); Potassium, Blood 3.9 mmol/L (3.5-5.5)
[2022-04-07] MEDS ORDERED: SULTRIDS PO (12:46)
[2022-04-07] MEDS ORDERED: VISBIOME 112.51 EACH PO (12:47)
--- NOTE | 2022-04-07 15:27 | NUR ---
DISCHARGE SUMMARY: PT DISCHARGED TODAY WITH HOME HEALTH SERVICES. PT REPORTED SHE WAS EXCITED TO BE GOING HOME VS SNF. PT EDUCATED ON DISCHARGE INSTRUCTIONS AND MEDICATIONS. PT WOUND CARE COMPLETED PRIOR TO DISCHARGE ALONG WITH IV REMOVED. ASSISTED PT WITH PACKING UP BELONGINGS. OT ASSISTED PT WITH GETTING DRESSED. APPOINTMENT MADE FOR FOLLOW-UP WITH DR. ROCHA AT [facility]. PT ESCORTED TO POV VIA WC AND CONTRACT LOADER. PT LEFT WITH HER FRIEND SHE STATED WAS GOING TO BE HER CAREGIVER.
== END 2022-04-07 13:05 | disposition home health service (06) | DRG 464 ==
LOC: ER 14:06 → MEDS 21:43
PROVIDERS: Family Medicine; Orthopaedic Surgery; Physician Assistant; ADMIT Family Medicine
PROC: 0JBP0ZZ Excision of Left Lower Leg Subcutaneous Tissue and Fascia, Open Approach (ICD-10-PCS; principal; 2022-04-04 16:00)
PROC: 0JQP0ZZ Repair Left Lower Leg Subcutaneous Tissue and Fascia, Open Approach (ICD-10-PCS; 2022-04-06)
DX: T87.44 Infection of amputation stump, left lower extremity (principal); M96.840 Postprocedural hematoma of a musculoskeletal structure following a musculoskeletal system procedure; Z20.822 Contact with and (suspected) exposure to COVID-19; G62.9 Polyneuropathy, unspecified; K21.9 Gastro-esophageal reflux disease without esophagitis; I25.10 Atherosclerotic heart disease of native coronary artery without angina pectoris; I11.0 Hypertensive heart disease with heart failure; I50.9 Heart failure, unspecified; E78.5 Hyperlipidemia, unspecified; F32.A Depression, unspecified; E11.51 Type 2 diabetes mellitus with diabetic peripheral angiopathy without gangrene; I25.2 Old myocardial infarction; Z95.5 Presence of coronary angioplasty implant and graft; Z79.899 Other long term (current) drug therapy; Z91.018 Allergy to other foods; Z88.8 Allergy status to other drugs, medicaments and biological substances; Z88.6 Allergy status to analgesic agent; F17.210 Nicotine dependence, cigarettes, uncomplicated; W19.XXXA Unspecified fall, initial encounter; Y92.009 Unspecified place in unspecified non-institutional (private) residence as the place of occurrence of the external cause; Y83.5 Amputation of limb(s) as the cause of abnormal reaction of the patient, or of later complication, without mention of misadventure at the time of the procedure
CPT/HCPCS: 0241U; 36415; 73552; 73701; 80048; 80053; 80202; 82947; 83605; 83690; 83735; 85025; 85651; 86140; 87040; 87071; 87075; 87077; 87147; 87186; 87205; 94760; 96365; 96366; 96367; 96375; 97110; 97162; 97166; 97530; 97535; 99285-25; A9270; C1751; J0692; J1170; J2060; J2270; J2405; J2704; J3010; J3370; J3480; J7040; J7050; J7060; Q9967

== ENCOUNTER 2022-10-26 09:05 | Day surgery (SDC) | payer OTHER ==
[~2022-10-26] VITALS: Ht 144.8 cm; Wt 52.0 kg
[~2022-10-26 09:05] MED LIST changes: +ACET325 PO; +HYDMOR2 PO; +LIDO700A20 TOP; +LYRICA PO; +MELA3 PO; +MIRALAX17 GM PO; +MULVITA PO; +OMEP20ER PO; +SULTRIDS PO; +VISBIOME 112.51 EACH PO
[2022-10-26] MEDS ORDERED: IBU800 M1 PO (09:57)
[2022-10-26] MEDS ORDERED: JARDIANCE10 MG PO (09:57)
[2022-10-26] MEDS ORDERED: XARELTO20 MG PO (09:57)
[2022-10-26] MEDS ORDERED: ASPI81CH PO (09:58)
[2022-10-26] MEDS ORDERED: Prozac40 MG PO (09:58)
[2022-10-26] MEDS ORDERED: PREG200 PO (09:59)
[2022-10-26] MEDS ORDERED: ATOR80 PO (09:59)
[2022-10-26] MEDS ORDERED: IRBE75 PO (09:59)
[2022-10-26] MEDS ORDERED: Norco 10-325 T1 EACH PO (10:00)
--- NOTE | 2022-10-26 16:12 | NUR ---
PT DRESSED, IV DC'D INTACT, STEPHAN CALLED, DR JUÁREZ BY WITH PLAN OF CARE, GAVE PAIN MED FOR LEG PAIN
--- NOTE | 2022-10-26 16:33 | NUR ---
PT DC'D BY ADRIENNE, FRIEND DRIVING PT HOME
== END 2022-10-26 16:45 | disposition home or self-care (01) ==
LOC: MHTC 09:05
DX: E11.51 Type 2 diabetes mellitus with diabetic peripheral angiopathy without gangrene (principal); I70.223 Atherosclerosis of native arteries of extremities with rest pain, bilateral legs; E11.69 Type 2 diabetes mellitus with other specified complication; Z89.612 Acquired absence of left leg above knee; I50.9 Heart failure, unspecified; I11.0 Hypertensive heart disease with heart failure
CPT/HCPCS: 76937; 85347; 99152; 99153; A9270; C1714; C1725; C1760; C1769; C1874; C1887; C1894; C2623; J1644; J2250; J3010; J7030; J7050; Q9967

== ENCOUNTER 2022-11-02 09:07 | Day surgery (SDC) | payer OTHER ==
[~2022-11-02] VITALS: Ht 144.8 cm; Wt 54.5 kg
[~2022-11-02 09:07] MED LIST changes: +ASPI81CH PO; +IBU800 M1 PO; +Norco 10-325 T1 EACH PO; +PREG200 PO; +Prozac40 MG PO
--- NOTE | 2022-11-02 12:50 | NUR ---
PT ARRIVED BACK TO RECOVERY ROOM IN BED. LEFT BRACHIAL ARTERIAL SITE SOFT NON-TENDER WITH NO HEMATOMA, NO BLEEDING AND INTACT DRESSING. PT DENIES CHEST PAIN. CALL LIGHT IN REACH.
--- NOTE | 2022-11-02 13:30 | NUR ---
NO CHANGES TO LEFT BRACHIAL SITE; NO HEMATOMA, NO BLEEDING AND SOFT. PT SITTING UP EATING LUNCH.
--- NOTE | 2022-11-02 14:24 | NUR ---
NO CHANGES TO LEFT BRACHIAL SITE; SOFT WITH NO HEMATOMA, NO BLEEING AND INTACT DRESSING. DISCHARGE INSTRUCTIONS REVIEWED AND ALL QUESTIONS ANSWERED. 22 G IV DISCONTINUED FROM RIGHT FA WITH INTACT CANNULA. PT ESCORTED OUT VIA WHEELCHAIR ESCORT.
== END 2022-11-02 14:28 | disposition home or self-care (01) ==
LOC: MHTC 09:07
DX: E11.51 Type 2 diabetes mellitus with diabetic peripheral angiopathy without gangrene (principal); E11.69 Type 2 diabetes mellitus with other specified complication; Z89.612 Acquired absence of left leg above knee; I11.0 Hypertensive heart disease with heart failure; I50.9 Heart failure, unspecified; I70.223 Atherosclerosis of native arteries of extremities with rest pain, bilateral legs; F32.A Depression, unspecified; Z91.040 Latex allergy status; Z88.5 Allergy status to narcotic agent
CPT/HCPCS: 76937; 99152; 99153; A9270; C1725; C1769; C1874; C1876; C1887; C1894; C2623; J1644; J2250; J3010; J7030; J7050; Q9967

== ENCOUNTER 2022-11-10 10:22 | Emergency (ER) | payer OTHER ==
[~2022-11-10] VITALS: Ht 144.8 cm; Wt 60.5 kg
[2022-11-10 12:36] LABS: BASOPHILS ABSOLUTE AUTO 0.03 K/mm3 (0.00-0.23); BASOPHILS PERCENT AUTO 0 % (0-2); EOSINOPHILS ABSOLUTE AUTO 0.06 K/mm3 (0.00-0.68); EOSINOPHILS PERCENT AUTO 1 % (0-6); Hematocrit 45.6 % (33.0-51.0); Hemoglobin 15.4 g/dL (11.5-16.0); IMMATURE GRAN ABSOLUTE AUTO 0.03 K/mm3 (0.00-0.10); IMMATURE GRAN PERCENT AUTO 0 % (0-1); LYMPHOCYTES ABSOLUTE AUTO 2.22 K/mm3 (0.84-5.20); LYMPHOCYTES PERCENT AUTO 30 % (21-46); MONOCYTES ABSOLUTE AUTO 0.56 K/mm3 (0.16-1.47); MONOCYTES PERCENT AUTO 7 % (4-13); Mean Corpuscular HGB 30.5 pg (26.0-34.0); Mean Corpuscular HGB Conc 33.8 g/dL (31.5-36.5); Mean Corpuscular Volume 90 fL (80-100); Mean Platelet Volume 11.3 fL (9.1-12.4); NEUTROPHILS ABSOLUTE AUTO 4.62 K/mm3 (1.96-9.15); NEUTROPHILS PERCENT AUTO 62 % (41-73); Platelet Count 289 K/mm3 (150-400); RDW Coefficient Variation 12.6 % (11.7-14.2); RDW Standard Deviation 41.3 fL (35.1-46.3); Red Blood Cell Count 5.05 M/mm3 (3.80-5.20); White Blood Cell Count 7.52 K/mm3 (4.00-11.30)
[2022-11-10 12:55] LABS: International Normalized Ratio 1.36
[2022-11-10 13:07] LABS: Albumin, Blood 3.7 g/dL (3.4-5.0); Albumin/Globulin Ratio 0.8 (0.8-1.8); Bilirubin, Total 0.3 mg/dL (0.1-1.0); Bun/Creatinine Ratio 15.1 (12.0-20.0); Calcium, Blood 9.2 mg/dL (8.5-10.1); Creatinine, Blood 0.6 mg/dL (0.40-1.00); Globulin, Blood 4.4 g/dL (2.2-4.0); Total Protein, Blood 8.1 g/dL (6.4-8.2)
== END 2022-11-10 19:45 | disposition short-term general hospital (02) ==
LOC: ER 10:22
PROVIDERS: Student in an Organized Health Care Education/Training Program
DX: E11.51 Type 2 diabetes mellitus with diabetic peripheral angiopathy without gangrene (principal); I70.221 Atherosclerosis of native arteries of extremities with rest pain, right leg; T82.858A Stenosis of other vascular prosthetic devices, implants and grafts, initial encounter; Y71.8 Miscellaneous cardiovascular devices associated with adverse incidents, not elsewhere classified; I25.10 Atherosclerotic heart disease of native coronary artery without angina pectoris; E78.5 Hyperlipidemia, unspecified; I11.0 Hypertensive heart disease with heart failure; I50.9 Heart failure, unspecified; F17.210 Nicotine dependence, cigarettes, uncomplicated; Z88.5 Allergy status to narcotic agent; Z88.8 Allergy status to other drugs, medicaments and biological substances; Z91.018 Allergy to other foods; Z79.899 Other long term (current) drug therapy; Z79.01 Long term (current) use of anticoagulants; Z79.82 Long term (current) use of aspirin
CPT/HCPCS: 75635; 80053; 85025; 85610; 85730; J1170; J1644; J2405; Q9967

== ENCOUNTER → 2023-03-08 | Outpatient (CLI) | payer OTHER | LOC: LAB SHORT 14:49 → LAB 14:49 → PLD 14:49 | DX: D48.5 Neoplasm of uncertain behavior of skin (principal) | CPT/HCPCS: 88305 ==

== ENCOUNTER 2023-08-04 13:52 | Inpatient (IN) | payer OTHER ==
[~2023-08-04] VITALS: Ht 154.9 cm; Wt 62.8 kg
[2023-08-04 14:36] LABS: Albumin, Blood 3.2 g/dL (3.4-5.0); Albumin/Globulin Ratio 0.8 (0.8-1.8); Bilirubin, Total 0.3 mg/dL (0.1-1.0); Bun/Creatinine Ratio 17.4 (12.0-20.0); Calcium, Blood 8.3 mg/dL (8.5-10.1); Creatinine, Blood 0.57 mg/dL (0.40-1.00); Globulin, Blood 3.8 g/dL (2.2-4.0); Potassium, Blood 3.5 mmol/L (3.5-5.5)
[2023-08-04 15:17] LABS: Mean Corpuscular HGB 18.3 pg (26.0-34.0); Mean Corpuscular HGB Conc 26.1 g/dL (31.5-36.5); Mean Corpuscular Volume 70 fL (80-100); NRBC ABSOLUTE 0.08 K/mm3 (0.00-0.02); NRBC Auto 1.3 /100 WBC (0.0-0.2); Platelet Count 243 K/mm3 (150-400); RDW Standard Deviation 45.1 fL (35.1-46.3); Red Blood Cell Count 2.24 M/mm3 (3.80-5.20); White Blood Cell Count 6.03 K/mm3 (4.00-11.30)
[2023-08-04 15:42] LABS: Hemoglobin 4.1 g/dL (11.5-16.0)
[2023-08-04 15:43] LABS: Hematocrit 15.7 % (33.0-51.0)
[2023-08-04 16:40] LABS: BAND PERCENT MAN 2 % (0-8); BASOPHILS ABSOLUTE MAN 0.12 K/mm3 (0.00-0.23); BASOPHILS PERCENT MAN 2 % (0-2); EOSINOPHILS ABSOLUTE MAN 0.06 K/mm3 (0.00-0.68); EOSINOPHILS PERCENT MAN 1 % (0-6); LYMPHOCYTES % ATYPICAL MANUAL 1 % (0-0); LYMPHOCYTES ABSOLUTE MAN 2.17 K/mm3 (0.84-5.20); LYMPHOCYTES PERCENT MAN 35 % (21-46); MONOCYTES PERCENT MAN 5 % (4-13); NEUTROPHILS ABSOLUTE MAN 3.49 K/mm3 (1.96-9.15); SEG NEUTROPHILS PERCENT MAN 56 % (41-73); TOTAL CELLS COUNTED 200
[2023-08-04 18:53] LABS: Percent Saturation 3.4 % (15.0-50.0)
[2023-08-05] VITALS (15 sets, daily range): BP systolic 100–141; BP diastolic 60–79
[2023-08-05] MEDS ORDERED: GABA300 PO (00:38)
[2023-08-05] MEDS ORDERED: Isosorbide Mono30 MG PO (00:39)
[2023-08-05] MEDS ORDERED: ASPI81CH PO (00:39)
[2023-08-05] MEDS ORDERED: CILOSTAZOL50 M1 PO (00:41)
--- NOTE | 2023-08-05 01:44 | NUR ---
ASSUMPTION OF CARE PT ARRIVED TO PCU AT 2150 VIA ER DENYS. PT A&O X4; FOLLOWING COMMANDS AND INTERACTING APPROPRIATELY. ALTHOUGH AT TIMES PT'S MOOD LABILE. PT TRANSFERRED TO PCU HOSPITAL BED VIA SLIDE SHEET. PT ARRIVED ON RA, VSS; SEE VITALS. PT DENIES DIZZINESS OR LIGHTHEADNESS, SOB, OR CP/PRESSURE. PT APPEARS PALE IN COLOR. PT DOES REPORT PREVIOUS PALPIATIONS, BUT CURRENTLY DENIES. AT TIMES OF ARRIVAL, PRBC'S INFUSING. PROTONIX INFUSING. PT DENIES MELENA OR ANY CONCERNS W/BM'S OR VOIDING. DENIES N/V. DENIES ANY NOTABLE BLEEDING. PT AFEBRILE. PT DENIES TRANSFUSION REACTION SX. PT HAS LLE AMPUTATION, WHEELCHAIR BOUND AT BASELINE BUT PT ABLE TO REPOSITION INDEPENDENTLY. PT C/O CHRONIC PAIN RELATED TO PAD AND NERVE PAIN. PT ORIENTED TO ROOM AND CALL LIGHT IN REACH
[2023-08-05 05:20] LABS: BASOPHILS ABSOLUTE AUTO 0.03 K/mm3 (0.00-0.23); BASOPHILS PERCENT AUTO 1 % (0-2); EOSINOPHILS ABSOLUTE AUTO 0.01 K/mm3 (0.00-0.68); EOSINOPHILS PERCENT AUTO 0 % (0-6); Hematocrit 27.2 % (33.0-51.0); Hemoglobin 8.3 g/dL (11.5-16.0); IMMATURE GRAN ABSOLUTE AUTO 0.03 K/mm3 (0.00-0.10); IMMATURE GRAN PERCENT AUTO 1 % (0-1); LYMPHOCYTES ABSOLUTE AUTO 1.95 K/mm3 (0.84-5.20); LYMPHOCYTES PERCENT AUTO 34 % (21-46); MONOCYTES ABSOLUTE AUTO 0.73 K/mm3 (0.16-1.47); MONOCYTES PERCENT AUTO 13 % (4-13); Mean Corpuscular HGB 23.9 pg (26.0-34.0); Mean Corpuscular HGB Conc 30.5 g/dL (31.5-36.5); NEUTROPHILS ABSOLUTE AUTO 3.07 K/mm3 (1.96-9.15); NEUTROPHILS PERCENT AUTO 53 % (41-73); NRBC ABSOLUTE 0.09 K/mm3 (0.00-0.02); NRBC Auto 1.5 /100 WBC (0.0-0.2); Platelet Count 161 K/mm3 (150-400); RDW Coefficient Variation 19.3 % (11.7-14.2); RDW Standard Deviation 54.6 fL (35.1-46.3); Red Blood Cell Count 3.48 M/mm3 (3.80-5.20); White Blood Cell Count 5.82 K/mm3 (4.00-11.30)
[2023-08-05 05:23] LABS: Mean Corpuscular Volume 78 fL (80-100)
[2023-08-05 06:21] LABS: Calcium, Blood 7.8 mg/dL (8.5-10.1); Creatinine, Blood 0.6 mg/dL (0.40-1.00); Potassium, Blood 3.6 mmol/L (3.5-5.5)
--- NOTE | 2023-08-05 07:22 | NUR ---
SHIFT SUMMARY PT A&O X4. RESPONDS APPROPRIATELY AND FOLLOWS COMMANDS. VSS THROUGHOUT SHIFT. PT RECEIVED 3 UNITS OF PRBC'S; TOLERATED WELL. VSS THROUGHT TRANSFUSIONS. PROTONIX INFUSING PER EMAR. PT DENIES SOB, DIZZINESS, LIGHTHEADNESS, CP OR PRESSURE. REPORTS NO PALPITATIONS THIS SHIFT. C/O CHRONIC NERVE AND LEG PAIN. MEDICATION PER EMAR FOR PAIN RELIEF. PT USING BEDPAN TO VOID. NO BM THIS SHIFT. RECHECK OF AM HGB 8.3. WILL UPDATE ONCOMING RN
--- NOTE | 2023-08-05 08:08 | NUR ---
CARE OF PT ASSUMED AT 0700. PT AWAKE AND ALERT, OX3. PT C/O CHRONIC PAIN 9 TO RIGHT LEG. RIGHT LEG PINK AND WARM, 2+ EDEMA TO FOOT, VERY FAINT DP PULSES. PT DENIES CHEST PAIN, NAUSEA, SOB, DIZZINESS. PROTONIX INFUSING AT 10CC/HR. PT SCHEDULED FOR EGD THIS AM, PT NPO. NO SIGNS OF ACTIVE BLEEDING.
[2023-08-05 08:20] LABS: Hematocrit 26.8 % (33.0-51.0); Hemoglobin 8.3 g/dL (11.5-16.0)
--- NOTE | 2023-08-05 09:03 | NUR ---
08/05/23 0903 Harjit Becerril History, Chart, Medications and Allergies reviewed before start of procedure.MONITOR INTACT WITH CONTINUOUS PULSE OXIMETRY, CONTINUOUS END TITAL CO2, AND INTERMITTENT BLOOD PRESSURE.3-LEAD EKG REVIEWED WITH PHYSICIAN PRIOR TO START OF PROCEDURE.O2 VIA POM INTACT THROUGHOUT SEDATION/PROCEDURE.See Anesthesia record
--- NOTE | 2023-08-05 15:47 | NUR ---
ASSUME CARE: RECEIVED REPORT FROM LINO CHEUNG AT 1545. PT ALERT AND ORIENTED X4, ABLE TO FOLLOW COMMANDS AND MAKE NEEDS KNOWN. CURRENTLY SITTING IN BED WATCHING TELEVISION. BP AND HR STABLE. AFEBRILE. SPO2 >98% ON ROOM AIR. RESPIRATIONS EVEN AND UNLABORED. +2 EDEMA NOTED IN RLE. DENIES PAIN. PT CURRENTLY CLEAR LIQUID DIET, WATER AND ICE CHIPS UNTIL 0600 08/06/23. PLAN FOR COLONSCOPY 08/06/23. PT VERBALZIES UNDERSTANDING. PROTONIX GTT IN L. AC. BED IN LOW, CALL LIGHT IN REACH.
[2023-08-06] VITALS (16 sets, daily range): BP systolic 88–153; BP diastolic 45–120
[2023-08-06 03:43] LABS: Hematocrit 26.6 % (33.0-51.0); Hemoglobin 8.1 g/dL (11.5-16.0)
--- NOTE | 2023-08-06 06:27 | NUR ---
SHIFT SUMMARY PT REMAINS A&O X4. VSS. NO ACUTE EVENTS OVERNIGHT. PROTONIX GTT INFUSING PER EMAR. PT NPO FOR PROCEDURE TODAY, BOWEL PREP STARTED THIS SHIFT. PT USING BEDPAN TO VOID AND FOR BM'S. PT MEDICATED PER EMAR FOR CHRONIC NERVE AND LEG PAIN. PT DID HAVE "PRETTY BAD ITCHING" ALL OVER HER BODY, HOSPITALIST NOTIFIED; ORDER FOR ONE TIME DOSE OF 25 MG BENADRYL PO. PT REPORTS THIS HELPED RELIEVE ITCHING. NO OTHER EVENTS. WILL UPDATE ONCOMING RN
--- NOTE | 2023-08-06 08:04 | NUR ---
UPDATE: PT VOMITED APPROX 1400ML OF BOWEL PREP. CONTINUING TO HAVE BROWN LIQUID STOOL. WILL CONTINUE TO MONITOR.
--- NOTE | 2023-08-06 11:55 | NUR ---
UPDATE: PT TO DAY SURGERY FOR COLONSCOPY @3552. WILL AWAIT RETURN.
--- NOTE | 2023-08-06 12:14 | NUR ---
08/06/23 1214 Harjit Becerril HISTORY, CHART, MEDICATIONS AND ALLERGIES REVIEWED BEFORE START OF PROCEDURE. PATIENT CONFIRMS NPO STATUS AND AGREES WITH SCHEDULED PROCEDURE. 3-LEAD EKG REVIEWED WITH PHYSICIAN PRIOR TO START OF PROCEDURE. MONITOR INTACT WITH CONTINUOUS PULSE OXIMETRY,CAPNOGRAPHY, 3-LEAD EKG, INTERMITTENT BP. SUPPLEMENTAL O2 TO BE TITRATED THROUGHOUT PROCEDURE TO MAINTAIN O2 SATURATION ABOVE 90%. PATIENT DETERMINED TO BE ASA APPROPRIATE FOR PROPOFOL SEDATION PRIOR TO START OF PROCEDURE BY DR. BELTRAN.
--- NOTE | 2023-08-06 12:30 | NUR ---
UPDATE: PT BACK FROM DAY SURGERY. TOLERATED WELL. VSS.
--- NOTE | 2023-08-06 17:00 | NUR ---
SHIFT SUMMARY: PT ALERT AND ORIENTED X4, ABLE TO FOLLOW COMMANDS AND MAKE NEEDS KNOWN. BP AND HR STABLE. AFEBRILE. SPO2 >98% ON ROOM AIR. RESPIRATIONS EVEN AND UNLABORED. PT WITH 5/10 R. LEG PAIN, MEDICATED PER EMAR WITH GOOD RELEIF. BOWEL PREP COMPLETED THIS AM. PT WITH COLONSCOPY THIS AFTERNOON, SEE MD NOTE. PLAN FOR POSSIBLE DISCHARGE THIS EVENING. PT CURRENTLY SITTING IN CHAIR EATING DINNER. BED IN LOW, CALL LIGHT IN REACH, WILL REPORT TO ONCOMING RN.
--- NOTE | 2023-08-06 17:36 | NUR ---
DISCHARGE: PT D/C AT 1735 VIA WHEELCHAIR. DISCHARGE INSTRUCTIONS AND EDUCATION PROVIDED. ALL BELONGINGS WITH PT.
== END 2023-08-06 17:37 | disposition home or self-care (01) | DRG 811 ==
LOC: ER 13:52 → PCU 20:40
PROVIDERS: Emergency Medicine; Internal Medicine Gastroenterology; Student in an Organized Health Care Education/Training Program; ADMIT Family Medicine
PROC: 30233N1 Transfusion of Nonautologous Red Blood Cells into Peripheral Vein, Percutaneous Approach (ICD-10-PCS; 2023-08-04)
PROC: 0DJ08ZZ Inspection of Upper Intestinal Tract, Via Natural or Artificial Opening Endoscopic (ICD-10-PCS; principal; 2023-08-05 09:00)
PROC: 0DBK8ZZ Excision of Ascending Colon, Via Natural or Artificial Opening Endoscopic (ICD-10-PCS; 2023-08-06)
DX: D50.9 Iron deficiency anemia, unspecified (principal); K57.31 Diverticulosis of large intestine without perforation or abscess with bleeding; I50.22 Chronic systolic (congestive) heart failure; K63.89 Other specified diseases of intestine; K62.89 Other specified diseases of anus and rectum; I11.0 Hypertensive heart disease with heart failure; I65.23 Occlusion and stenosis of bilateral carotid arteries; I25.10 Atherosclerotic heart disease of native coronary artery without angina pectoris; E11.51 Type 2 diabetes mellitus with diabetic peripheral angiopathy without gangrene; E78.5 Hyperlipidemia, unspecified; F32.A Depression, unspecified; I25.2 Old myocardial infarction; K63.5 Polyp of colon; Z95.5 Presence of coronary angioplasty implant and graft; E11.42 Type 2 diabetes mellitus with diabetic polyneuropathy; R12 Heartburn; Z89.612 Acquired absence of left leg above knee; Z88.8 Allergy status to other drugs, medicaments and biological substances; Z91.018 Allergy to other foods; Z88.6 Allergy status to analgesic agent; Z95.820 Peripheral vascular angioplasty status with implants and grafts; Z79.01 Long term (current) use of anticoagulants; Z86.73 Personal history of transient ischemic attack (TIA), and cerebral infarction without residual deficits; Z87.891 Personal history of nicotine dependence
CPT/HCPCS: 36415; 36430; 80048; 80053; 82272; 82607; 82728; 82746; 82947; 83540; 83550; 83605; 85014; 85018; 85025; 86850; 86900; 86901; 86923; 88305; 93005; 93010; 93926; 93971; 96374; 96375; 96376; 99285-25; A9270; C9113; G0008; J1170; J1815; J2405; J2704; J2916; J7120; P9016; Q2036

== ENCOUNTER → 2023-09-04 | Outpatient (CLI) | payer OTHER ==
[~2023-09-04] MED LIST changes: +CILOSTAZOL50 M1 PO; +GABA300 PO
[2023-09-04 14:42] LABS: BASOPHILS ABSOLUTE AUTO 0.04 K/mm3 (0.00-0.23); BASOPHILS PERCENT AUTO 1 % (0-2); EOSINOPHILS ABSOLUTE AUTO 0.11 K/mm3 (0.00-0.68); EOSINOPHILS PERCENT AUTO 2 % (0-6); Hematocrit 41.2 % (33.0-51.0); Hemoglobin 12.6 g/dL (11.5-16.0); IMMATURE GRAN ABSOLUTE AUTO 0.01 K/mm3 (0.00-0.10); IMMATURE GRAN PERCENT AUTO 0 % (0-1); LYMPHOCYTES ABSOLUTE AUTO 2.49 K/mm3 (0.84-5.20); LYMPHOCYTES PERCENT AUTO 37 % (21-46); MONOCYTES ABSOLUTE AUTO 0.49 K/mm3 (0.16-1.47); MONOCYTES PERCENT AUTO 7 % (4-13); Mean Corpuscular HGB 26.5 pg (26.0-34.0); Mean Corpuscular HGB Conc 30.6 g/dL (31.5-36.5); Mean Corpuscular Volume 87 fL (80-100); NEUTROPHILS PERCENT AUTO 54 % (41-73); Platelet Count 164 K/mm3 (150-400); RDW Coefficient Variation 22.4 % (11.7-14.2); RDW Standard Deviation 71.1 fL (35.1-46.3); Red Blood Cell Count 4.76 M/mm3 (3.80-5.20); White Blood Cell Count 6.74 K/mm3 (4.00-11.30)
== END | disposition home or self-care (01) ==
LOC: LAB 13:53 → LAB SHORT 13:53
PROVIDERS: Student in an Organized Health Care Education/Training Program
DX: R53.83 Other fatigue (principal)
CPT/HCPCS: 85025

== ENCOUNTER 2023-12-11 14:23 | Observation (INO) | payer OTHER ==
[~2023-12-11] VITALS: Ht 137.2 cm; Wt 63.0 kg
[2023-12-11 15:04] LABS: Hematocrit 32.6 % (33.0-51.0); Hemoglobin 9.7 g/dL (11.5-16.0); Mean Corpuscular HGB 24.9 pg (26.0-34.0); Mean Corpuscular HGB Conc 29.8 g/dL (31.5-36.5); Mean Corpuscular Volume 84 fL (80-100); Platelet Count 163 K/mm3 (150-400); RDW Coefficient Variation 21.2 % (11.7-14.2); RDW Standard Deviation 59.4 fL (35.1-46.3); White Blood Cell Count 6.72 K/mm3 (4.00-11.30)
[2023-12-11 15:25] LABS: Albumin, Blood 3.1 g/dL (3.4-5.0); Albumin/Globulin Ratio 0.8 (0.8-1.8); Bilirubin, Total 0.4 mg/dL (0.1-1.0); Bun/Creatinine Ratio 28.4 (12.0-20.0); Calcium, Blood 8.9 mg/dL (8.5-10.1); Creatinine, Blood 0.42 mg/dL (0.40-1.00); Globulin, Blood 3.8 g/dL (2.2-4.0); Potassium, Blood 4.6 mmol/L (3.5-5.5); Total Protein, Blood 6.9 g/dL (6.4-8.2)
[2023-12-11 15:39] LABS: BASOPHILS PERCENT MAN 0 % (0-2); EOSINOPHILS PERCENT MAN 0 % (0-6); LYMPHOCYTES % ATYPICAL MANUAL 1 % (0-0); LYMPHOCYTES ABSOLUTE MAN 2.21 K/mm3 (0.84-5.20); LYMPHOCYTES PERCENT MAN 32 % (21-46); MONOCYTES ABSOLUTE MAN 0.73 K/mm3 (0.16-1.47); MONOCYTES PERCENT MAN 11 % (4-13); NEUTROPHILS ABSOLUTE MAN 3.76 K/mm3 (1.96-9.15); SEG NEUTROPHILS PERCENT MAN 56 % (41-73); TOTAL CELLS COUNTED 100
[2023-12-11] MEDS ORDERED: Pantoprazole Sodium 40 MG Injection IV ONE (16:35)
[2023-12-11] MEDS ORDERED: FLU VACC QS2023-24(6MOS UP)/PF 60 MCG/0.5 ML SYRINGE IM SCH (17:25)
[2023-12-11] MEDS ORDERED: Insulin Regular 100 UNIT/ML 10ML Vial SC SCH (18:00)
[2023-12-11] MEDS ORDERED: HYDROcodone 5-APAP 325 TAB PO PRN ×2 (18:00→18:50)
[2023-12-11] MEDS ORDERED: HYDROcodone 5-APAP 325 TAB PO ONE (18:00)
[2023-12-11 18:34] VITALS: BP 137/87
--- NOTE | 2023-12-11 19:23 | NUR ---
PT ARRIVED TO UNIT FROM ED IN PERSONAL WC. PT TRANSFERRED INDEPENDENTLY FROM WC TO BED. LCA W/DIM BASES. HRR. VSS. ORIENTED TO USE OF CALL LIGHT AND LAY OUT OF ROOM. REPORTED TO ONCOMING SHIFT.
[2023-12-11 19:36] VITALS: BP 112/59
[2023-12-11] MEDS ORDERED: HYDROcodone 5-APAP 325 TAB PO SCH (20:00)
[2023-12-11] MEDS ORDERED: Atorvastatin 40 MG Tab PO SCH (21:00)
[2023-12-11] MEDS ORDERED: TraZODone HCl 50 MG Tab PO SCH (21:00)
[2023-12-11] MEDS ORDERED: Gabapentin 300 MG Cap PO SCH (21:00)
[2023-12-11] MEDS ORDERED: Irbesartan 150 MG Tab PO SCH (21:00)
[2023-12-12] VITALS (18 sets, daily range): BP systolic 82–132; BP diastolic 48–90
--- NOTE | 2023-12-12 05:24 | NUR ---
SHIFT SUMMARY NO ACUTE CHANGES THIS SHIFT. PT SLEPT WELL. NPO SINCE MIDNIGHT. NORCO FOR PAIN PRN. NO RECTAL BLEEDING NOTED THIS SHIFT. PT INDEP TO THE RESTROOM WITH W/C. PLAN FOR POSSIBLE MEDIPORT PLACEMENT TODAY. GENERAL SURGERY CONSULT CALLED IN TO [facility]. CALL LIGHT WITHIN REACH.
[2023-12-12] MEDS ORDERED: Pantoprazole Sodium 40 MG Injection IV SCH (06:00)
[2023-12-12 06:22] LABS: BASOPHILS ABSOLUTE AUTO 0.03 K/mm3 (0.00-0.23); BASOPHILS PERCENT AUTO 1 % (0-2); EOSINOPHILS ABSOLUTE AUTO 0.13 K/mm3 (0.00-0.68); EOSINOPHILS PERCENT AUTO 3 % (0-6); Hematocrit 33.2 % (33.0-51.0); Hemoglobin 9.6 g/dL (11.5-16.0); IMMATURE GRAN ABSOLUTE AUTO 0.03 K/mm3 (0.00-0.10); IMMATURE GRAN PERCENT AUTO 1 % (0-1); LYMPHOCYTES ABSOLUTE AUTO 2.29 K/mm3 (0.84-5.20); LYMPHOCYTES PERCENT AUTO 44 % (21-46); MONOCYTES ABSOLUTE AUTO 0.58 K/mm3 (0.16-1.47); MONOCYTES PERCENT AUTO 11 % (4-13); Mean Corpuscular HGB 24.7 pg (26.0-34.0); Mean Corpuscular HGB Conc 28.9 g/dL (31.5-36.5); Mean Corpuscular Volume 86 fL (80-100); NEUTROPHILS ABSOLUTE AUTO 2.21 K/mm3 (1.96-9.15); NEUTROPHILS PERCENT AUTO 42 % (41-73); Platelet Count 154 K/mm3 (150-400); RDW Coefficient Variation 21.2 % (11.7-14.2); RDW Standard Deviation 63.9 fL (35.1-46.3); Red Blood Cell Count 3.88 M/mm3 (3.80-5.20); White Blood Cell Count 5.27 K/mm3 (4.00-11.30)
[2023-12-12 06:56] LABS: Albumin, Blood 3.1 g/dL (3.4-5.0); Albumin/Globulin Ratio 0.9 (0.8-1.8); Bilirubin, Total 0.5 mg/dL (0.1-1.0); Calcium, Blood 8.7 mg/dL (8.5-10.1); Globulin, Blood 3.6 g/dL (2.2-4.0); Total Protein, Blood 6.7 g/dL (6.4-8.2)
[2023-12-12] MEDS ORDERED: NS 250 ML IV SCH ×2 (07:45→08:00)
--- NOTE | 2023-12-12 08:05 | NUR ---
LOW BP PT'S SBP [address] GARSIA AND ORDERS OBTAINED TO HOLD IMDUR AND TO GIVE 250 ML NS AT 70 ML PER HR. NOTIFIED DR GARSIA PT STATES UNABLE TO WEAR PAS OR CHANTELL HOSE TO RLE DUE TO MULTIPLE STENTS.
[2023-12-12] MEDS ORDERED: Empagliflozin 10 MG TAB PO SCH (09:00)
[2023-12-12] MEDS ORDERED: Isosorbide Mononitrate 60 MG TABCR PO SCH (09:00)
--- NOTE | 2023-12-12 10:37 | NUR ---
DR GARSIA IN TO SEE PT.
[2023-12-12] MEDS ORDERED: Lactated Ringer's 1,000 ML IV SCH (13:00)
[2023-12-12] MEDS ORDERED: CeFAZolin Sodium 2,000 MG in NS 50 ML IV SCH (13:15)
--- NOTE | 2023-12-12 14:40 | NUR ---
PT HERE VIA DENYS FROM SURGICAL FLOOR. PT HAS A LEFT AKA. Patient confirms NPO status and agrees with scheduled surgery. Pre-Op teaching done. Pt verbalizes understanding. History, Chart, Medications and Allergies reviewed before start of procedure. PT ABLE TO TRANSFER TO COMMODE AND VOID. PT STATES SHE HAS "BLOCKAGES" IN HER RIGHT LEG AND DOES NOT WANT PAS ON.
[2023-12-12] MEDS ORDERED: FentaNYL Citrate 50 MCG/ML 2 ML Injection ONE (14:44)
[2023-12-12] MEDS ORDERED: propofoL 20 ML IV ONE (14:44)
[2023-12-12] MEDS ORDERED: Bupivacaine 0.5% HCl 5 MG/ML 30MLVIAL ONE (14:47)
[2023-12-12] MEDS ORDERED: ePHEDrine Sulfate 50 MG/ML 1ML Injection ONE (15:00)
[2023-12-12] MEDS ORDERED: Ondansetron HCl 2 MG / ML 2ML Vial ONE (15:29)
[2023-12-12] MEDS ORDERED: Dexamethasone Sod Phos 10 MG/ML 1ML VIAL ONE (15:29)
[2023-12-12] MEDS ORDERED: Albuterol 2.5 MG/3 ML VIAL ONE (16:08)
--- NOTE | 2023-12-12 17:16 | NUR ---
SUMMARY PT BACK FROM PACU. A&OX4. SCOOTED SELF FROM GURNEY TO BED. VSS. CBG 206. PT REFUSING INSULIN. REPORTED THIS FACT TO DR GARSIA. PT WANTED REGULAR SPRITE. DISSUADED DUE TO BLOOD SUGAR CONCERNS. DRESSING TO R NECK AND CW CDI. PROVIDED WARM BLANKET FOR COMFORT. CALL LIGHT IN REACH. PT DRINKING CHICKEN BROTH.
--- NOTE | 2023-12-12 18:43 | NUR ---
DR BELTRAN IN TO SEE PT.
[2023-12-12] MEDS ORDERED: Insulin Regular 100 UNIT/ML 10ML Vial SC SCH (21:00)
[2023-12-13 02:05] VITALS: BP 135/74
[2023-12-13 05:30] LABS: BASOPHILS ABSOLUTE AUTO 0.01 K/mm3 (0.00-0.23); BASOPHILS PERCENT AUTO 0 % (0-2); EOSINOPHILS PERCENT AUTO 0 % (0-6); Hematocrit 32.1 % (33.0-51.0); Hemoglobin 9.4 g/dL (11.5-16.0); IMMATURE GRAN ABSOLUTE AUTO 0.03 K/mm3 (0.00-0.10); IMMATURE GRAN PERCENT AUTO 1 % (0-1); LYMPHOCYTES ABSOLUTE AUTO 0.48 K/mm3 (0.84-5.20); LYMPHOCYTES PERCENT AUTO 8 % (21-46); MONOCYTES ABSOLUTE AUTO 0.28 K/mm3 (0.16-1.47); MONOCYTES PERCENT AUTO 5 % (4-13); Mean Corpuscular HGB 24.5 pg (26.0-34.0); Mean Corpuscular HGB Conc 29.3 g/dL (31.5-36.5); Mean Corpuscular Volume 84 fL (80-100); NEUTROPHILS ABSOLUTE AUTO 5.15 K/mm3 (1.96-9.15); NEUTROPHILS PERCENT AUTO 87 % (41-73); Platelet Count 157 K/mm3 (150-400); RDW Coefficient Variation 20.2 % (11.7-14.2); RDW Standard Deviation 61.1 fL (35.1-46.3); Red Blood Cell Count 3.84 M/mm3 (3.80-5.20); White Blood Cell Count 5.95 K/mm3 (4.00-11.30)
[2023-12-13 05:38] LABS: Albumin, Blood 3.5 g/dL (3.4-5.0); Albumin/Globulin Ratio 0.9 (0.8-1.8); Bilirubin, Total 0.4 mg/dL (0.1-1.0); Bun/Creatinine Ratio 35.3 (12.0-20.0); Calcium, Blood 9.3 mg/dL (8.5-10.1); Creatinine, Blood 0.48 mg/dL (0.40-1.00); Globulin, Blood 3.7 g/dL (2.2-4.0); Potassium, Blood 4.8 mmol/L (3.5-5.5); Total Protein, Blood 7.2 g/dL (6.4-8.2)
--- NOTE | 2023-12-13 06:35 | NUR ---
SHIFT SUMMARY NOC. PT ADMITTED FOR GI BLEED. PT POD 1 FOR MEDIPORT PLACEMENT. DRESSING ON RIGHT NECK AND RIGHT CHEST ARE C/D/I. PT MEDICATED FOR PAIN WITH RELIEF OF SX. PT BLOOD SUGAR WAS ELEVATED AND PT DECLINED INSULIN. AFTER EDUCATION PT AGREED TO INSULIN COVERAGE BUT DECLINED ADDITIONAL COVERAGE FOR OVER 350. DISCUSSED WITH STATISTICAL MODELER BLACK BULL. PT VOIDING AND TOLERATING PO INTAKE. PT RESTED FOR BREIF PERIODS WITH CALL LIGHT IN REACH.
[2023-12-13 07:17] VITALS: BP 129/71
[2023-12-13] MEDS ORDERED: PANT40 PO (10:49)
--- NOTE | 2023-12-13 11:15 | NUR ---
DISCHARGE: PACKET PRINTED AND PT EDUCATED. MEDS FAXED TO [facility] TO VISIT ATC AT DC FOR A TYPE AND SCREEN. ORDERS IN PLACE FOR IRON AND 2 UNIT OF BLOOD. PT VERBALIZED UNDERSTANDIND. LEFT UNIT IN OWN WHEELCHAIR WITH FAMILY AT ABOUT 1100
== END 2023-12-13 11:03 | disposition home or self-care (01) ==
LOC: ER 14:23 → SURS 14:24
PROVIDERS: Family Medicine; Hospitalist; Physician Assistant; ADMIT Student in an Organized Health Care Education/Training Program
PROC: 0JH60WZ Insertion of Totally Implantable Vascular Access Device into Chest Subcutaneous Tissue and Fascia, Open Approach (ICD-10-PCS; principal; 2023-12-13)
DX: D50.9 Iron deficiency anemia, unspecified (principal); I11.0 Hypertensive heart disease with heart failure; I50.20 Unspecified systolic (congestive) heart failure; I73.9 Peripheral vascular disease, unspecified; I25.10 Atherosclerotic heart disease of native coronary artery without angina pectoris
CPT/HCPCS: 36415; 77001; 80053; 82947; 85025; 86850; 86900; 86901; 96374; 96376; 99285-25; A9270; C1788; C9113; G0378; J0690; J1100; J1642; J1815; J2405; J2704; J3010; J7040; J7120

== ENCOUNTER 2023-12-15 00:51 | Day surgery (SDC) | payer OTHER ==
[2023-12-14 10:20] VITALS: BP 141/89
[2023-12-15] VITALS (7 sets, daily range): BP systolic 128–173; BP diastolic 73–85
[~2023-12-15 00:51] MED LIST changes: +Sod Ferric Gluc Complx/Sucrose 125 MG in NS 100 ML IV SCH
[2023-12-15] MEDS ORDERED: NS 250 ML IV SCH (06:55)
[2023-12-15 14:23] LABS: Hemoglobin 11.8 g/dL (11.5-16.0)
== END 2023-12-15 14:09 | disposition home or self-care (01) ==
LOC: ATC 00:51
PROVIDERS: Hospitalist
DX: D50.9 Iron deficiency anemia, unspecified (principal); E78.5 Hyperlipidemia, unspecified; I12.9 Hypertensive chronic kidney disease with stage 1 through stage 4 chronic kidney disease, or unspecified chronic kidney disease; E11.22 Type 2 diabetes mellitus with diabetic chronic kidney disease; N18.2 Chronic kidney disease, stage 2 (mild); E11.42 Type 2 diabetes mellitus with diabetic polyneuropathy; Z87.891 Personal history of nicotine dependence; Z79.01 Long term (current) use of anticoagulants; Z79.82 Long term (current) use of aspirin; Z79.899 Other long term (current) drug therapy
CPT/HCPCS: 36430; 85014; 85018; 86850; 86900; 86901; 86923; 96365; J1642; J2916; J7050; P9016

== ENCOUNTER 2023-12-22 04:55 | Day surgery (SDC) | payer OTHER ==
[~2023-12-22 04:55] MED LIST changes: -Sod Ferric Gluc Complx/Sucrose 125 MG in NS 100 ML IV SCH
[2023-12-22] MEDS ORDERED: Sod Ferric Gluc Complx/Sucrose 125 MG in NS 100 ML IV SCH (06:00)
[2023-12-22 10:08] VITALS: BP 155/86
== END 2023-12-22 11:13 | disposition home or self-care (01) ==
LOC: ATC 04:55
DX: D50.9 Iron deficiency anemia, unspecified (principal); F32.9 Major depressive disorder, single episode, unspecified; I10 Essential (primary) hypertension; E11.42 Type 2 diabetes mellitus with diabetic polyneuropathy; F17.210 Nicotine dependence, cigarettes, uncomplicated; E11.51 Type 2 diabetes mellitus with diabetic peripheral angiopathy without gangrene; Q63.1 Lobulated, fused and horseshoe kidney; Z79.899 Other long term (current) drug therapy; Z91.040 Latex allergy status; Z88.5 Allergy status to narcotic agent
CPT/HCPCS: 96365; J1642; J2916

== ENCOUNTER 2024-03-11 04:23 | Day surgery (SDC) | payer OTHER ==
[2024-03-11 11:23] VITALS: BP 125/85
== END 2024-03-11 12:55 | disposition home or self-care (01) ==
LOC: ATC 04:23
DX: Z45.2 Encounter for adjustment and management of vascular access device (principal); D50.9 Iron deficiency anemia, unspecified; I99.9 Unspecified disorder of circulatory system; I10 Essential (primary) hypertension; E78.5 Hyperlipidemia, unspecified; E11.42 Type 2 diabetes mellitus with diabetic polyneuropathy; F17.210 Nicotine dependence, cigarettes, uncomplicated; Z88.6 Allergy status to analgesic agent; Z88.8 Allergy status to other drugs, medicaments and biological substances; Z79.4 Long term (current) use of insulin; Z79.82 Long term (current) use of aspirin; Z79.899 Other long term (current) drug therapy

== ENCOUNTER 2024-04-26 03:13 | Day surgery (SDC) | payer OTHER | END 2024-04-26 23:13 | disposition home or self-care (01) | LOC: WOUND 03:13 | DX: S31.109D Unspecified open wound of abdominal wall, unspecified quadrant without penetration into peritoneal cavity, subsequent encounter (principal); I11.0 Hypertensive heart disease with heart failure; I50.9 Heart failure, unspecified; I25.10 Atherosclerotic heart disease of native coronary artery without angina pectoris; I25.2 Old myocardial infarction; I73.9 Peripheral vascular disease, unspecified; Z87.891 Personal history of nicotine dependence; X58.XXXD Exposure to other specified factors, subsequent encounter | CPT/HCPCS: A6213; G0463 ==

== ENCOUNTER 2024-05-03 02:15 | Day surgery (SDC) | payer OTHER ==
[2024-05-03 10:26] VITALS: BP 160/90
== END 2024-05-03 10:25 | disposition home or self-care (01) ==
LOC: ATC 02:15
DX: Z45.2 Encounter for adjustment and management of vascular access device (principal); E78.5 Hyperlipidemia, unspecified; I10 Essential (primary) hypertension; F17.210 Nicotine dependence, cigarettes, uncomplicated; E11.51 Type 2 diabetes mellitus with diabetic peripheral angiopathy without gangrene; Z98.84 Bariatric surgery status; Z91.040 Latex allergy status; Z88.8 Allergy status to other drugs, medicaments and biological substances
CPT/HCPCS: 36591; J1642

== ENCOUNTER 2024-05-03 02:32 | Day surgery (SDC) | payer OTHER | END 2024-05-03 23:16 | disposition home or self-care (01) | LOC: WOUND 02:32 | DX: T81.31XD Disruption of external operation (surgical) wound, not elsewhere classified, subsequent encounter (principal) | CPT/HCPCS: A6213; G0463 ==

== ENCOUNTER 2024-05-10 01:38 | Day surgery (SDC) | payer OTHER | END 2024-05-10 22:42 | disposition home or self-care (01) | LOC: WOUND 01:38 | DX: T81.31XD Disruption of external operation (surgical) wound, not elsewhere classified, subsequent encounter (principal) | CPT/HCPCS: A6213; G0463 ==

== ENCOUNTER 2024-05-31 03:42 | Day surgery (SDC) | payer OTHER | END 2024-05-31 23:04 | disposition home or self-care (01) | LOC: WOUND 03:42 | DX: T81.31XD Disruption of external operation (surgical) wound, not elsewhere classified, subsequent encounter (principal); Y83.8 Other surgical procedures as the cause of abnormal reaction of the patient, or of later complication, without mention of misadventure at the time of the procedure | CPT/HCPCS: A6213; G0463 ==

== ENCOUNTER 2024-06-17 03:40 | Day surgery (SDC) | payer OTHER ==
[2024-06-17 10:40] VITALS: BP 145/94
[2024-06-17 11:13] LABS: BASOPHILS ABSOLUTE AUTO 0.03 K/mm3 (0.00-0.23); BASOPHILS PERCENT AUTO 1 % (0-2); EOSINOPHILS ABSOLUTE AUTO 0.04 K/mm3 (0.00-0.68); EOSINOPHILS PERCENT AUTO 1 % (0-6); Hematocrit 38.3 % (33.0-51.0); Hemoglobin 12.1 g/dL (11.5-16.0); IMMATURE GRAN ABSOLUTE AUTO 0.01 K/mm3 (0.00-0.10); IMMATURE GRAN PERCENT AUTO 0 % (0-1); LYMPHOCYTES ABSOLUTE AUTO 1.77 K/mm3 (0.84-5.20); LYMPHOCYTES PERCENT AUTO 33 % (21-46); MONOCYTES ABSOLUTE AUTO 0.51 K/mm3 (0.16-1.47); MONOCYTES PERCENT AUTO 10 % (4-13); Mean Corpuscular HGB 28.1 pg (26.0-34.0); Mean Corpuscular HGB Conc 31.6 g/dL (31.5-36.5); Mean Corpuscular Volume 89 fL (80-100); NEUTROPHILS ABSOLUTE AUTO 3.01 K/mm3 (1.96-9.15); NEUTROPHILS PERCENT AUTO 56 % (41-73); Platelet Count 248 K/mm3 (150-400); RDW Coefficient Variation 12.9 % (11.7-14.2); RDW Standard Deviation 42.1 fL (35.1-46.3); White Blood Cell Count 5.37 K/mm3 (4.00-11.30)
== END 2024-06-17 10:45 | disposition home or self-care (01) ==
LOC: ATC 03:40
PROVIDERS: Student in an Organized Health Care Education/Training Program
DX: D64.9 Anemia, unspecified (principal)
CPT/HCPCS: 36591; 85025; J1642

== ENCOUNTER 2024-07-05 01:53 | Day surgery (SDC) | payer OTHER | END 2024-07-05 23:31 | disposition home or self-care (01) | LOC: WOUND 01:53 | DX: O90.0 Disruption of cesarean delivery wound (principal) | CPT/HCPCS: A6196; A6213; G0463 ==

== ENCOUNTER 2024-07-19 04:46 | Day surgery (SDC) | payer OTHER | END 2024-07-20 01:40 | disposition home or self-care (01) | LOC: WOUND 04:46 | DX: T81.31XD Disruption of external operation (surgical) wound, not elsewhere classified, subsequent encounter (principal); S31.109D Unspecified open wound of abdominal wall, unspecified quadrant without penetration into peritoneal cavity, subsequent encounter; Y83.8 Other surgical procedures as the cause of abnormal reaction of the patient, or of later complication, without mention of misadventure at the time of the procedure; X58.XXXD Exposure to other specified factors, subsequent encounter | CPT/HCPCS: G0463 ==

== ENCOUNTER 2024-07-22 07:00 | Day surgery (SDC) | payer OTHER ==
[2024-07-22 10:27] VITALS: BP 127/75
== END 2024-07-22 10:34 | disposition home or self-care (01) ==
LOC: ATC 07:00
DX: Z45.2 Encounter for adjustment and management of vascular access device (principal); E11.22 Type 2 diabetes mellitus with diabetic chronic kidney disease; I12.9 Hypertensive chronic kidney disease with stage 1 through stage 4 chronic kidney disease, or unspecified chronic kidney disease; N18.2 Chronic kidney disease, stage 2 (mild); F17.210 Nicotine dependence, cigarettes, uncomplicated; E11.51 Type 2 diabetes mellitus with diabetic peripheral angiopathy without gangrene; E11.42 Type 2 diabetes mellitus with diabetic polyneuropathy; Z98.84 Bariatric surgery status; Z79.899 Other long term (current) drug therapy; Z91.040 Latex allergy status; Z88.5 Allergy status to narcotic agent; Z88.8 Allergy status to other drugs, medicaments and biological substances
CPT/HCPCS: 96523; J1642

== ENCOUNTER 2024-08-02 03:33 | Day surgery (SDC) | payer OTHER | END 2024-08-03 03:01 | disposition home or self-care (01) | LOC: WOUND 03:33 | DX: S31.109A Unspecified open wound of abdominal wall, unspecified quadrant without penetration into peritoneal cavity, initial encounter (principal) | CPT/HCPCS: G0463 ==

== ENCOUNTER 2024-08-19 02:12 | Day surgery (SDC) | payer OTHER ==
[2024-08-19 10:31] VITALS: BP 157/79
[2024-08-19 15:06] LABS: BASOPHILS ABSOLUTE AUTO 0.04 K/mm3 (0.00-0.23); BASOPHILS PERCENT AUTO 1 % (0-2); EOSINOPHILS ABSOLUTE AUTO 0.01 K/mm3 (0.00-0.68); EOSINOPHILS PERCENT AUTO 0 % (0-6); Hematocrit 23.6 % (33.0-51.0); Hemoglobin 6.6 g/dL (11.5-16.0); IMMATURE GRAN ABSOLUTE AUTO 0.02 K/mm3 (0.00-0.10); IMMATURE GRAN PERCENT AUTO 0 % (0-1); LYMPHOCYTES ABSOLUTE AUTO 1.74 K/mm3 (0.84-5.20); LYMPHOCYTES PERCENT AUTO 34 % (21-46); MONOCYTES ABSOLUTE AUTO 0.61 K/mm3 (0.16-1.47); MONOCYTES PERCENT AUTO 12 % (4-13); Mean Corpuscular HGB 21.8 pg (26.0-34.0); Mean Corpuscular Volume 78 fL (80-100); Mean Platelet Volume 12.8 fL (9.1-12.4); NEUTROPHILS ABSOLUTE AUTO 2.77 K/mm3 (1.96-9.15); NEUTROPHILS PERCENT AUTO 53 % (41-73); Platelet Count 251 K/mm3 (150-400); RDW Coefficient Variation 15.9 % (11.7-14.2); RDW Standard Deviation 44.9 fL (35.1-46.3); Red Blood Cell Count 3.03 M/mm3 (3.80-5.20); White Blood Cell Count 5.19 K/mm3 (4.00-11.30)
[2024-08-19 15:46] LABS: Percent Saturation 4.6 % (15.0-50.0)
== END 2024-08-19 14:33 | disposition home or self-care (01) ==
LOC: ATC 02:12
PROVIDERS: Student in an Organized Health Care Education/Training Program
DX: Z45.2 Encounter for adjustment and management of vascular access device (principal); R53.83 Other fatigue; E11.51 Type 2 diabetes mellitus with diabetic peripheral angiopathy without gangrene; I10 Essential (primary) hypertension; E78.5 Hyperlipidemia, unspecified; F17.210 Nicotine dependence, cigarettes, uncomplicated; Z79.82 Long term (current) use of aspirin; Z79.01 Long term (current) use of anticoagulants; Z79.84 Long term (current) use of oral hypoglycemic drugs; Z91.040 Latex allergy status; Z88.6 Allergy status to analgesic agent; Z88.8 Allergy status to other drugs, medicaments and biological substances; Z91.018 Allergy to other foods; Z89.612 Acquired absence of left leg above knee
CPT/HCPCS: 36591; 82728; 83540; 83550; 85025; 96523; J1642

== ENCOUNTER 2024-08-21 14:31 | Day surgery (SDC) | payer OTHER ==
[2024-08-21] MEDS ORDERED: IMIP10 PO (17:37)
[2024-08-21] MEDS ORDERED: TIZA4 PO (17:38)
== END 2024-08-21 15:30 | disposition home or self-care (01) ==
LOC: ATC 14:31
DX: Z45.2 Encounter for adjustment and management of vascular access device (principal); N18.2 Chronic kidney disease, stage 2 (mild); E11.22 Type 2 diabetes mellitus with diabetic chronic kidney disease; I12.9 Hypertensive chronic kidney disease with stage 1 through stage 4 chronic kidney disease, or unspecified chronic kidney disease; Z98.84 Bariatric surgery status; E11.42 Type 2 diabetes mellitus with diabetic polyneuropathy; E11.51 Type 2 diabetes mellitus with diabetic peripheral angiopathy without gangrene; R06.02 Shortness of breath; F17.210 Nicotine dependence, cigarettes, uncomplicated; R53.1 Weakness; Z79.899 Other long term (current) drug therapy; Z91.040 Latex allergy status; Z88.8 Allergy status to other drugs, medicaments and biological substances; Z88.5 Allergy status to narcotic agent; Z91.018 Allergy to other foods; Z53.29 Procedure and treatment not carried out because of patient's decision for other reasons
CPT/HCPCS: 80053; 85025; 86850; 86900; 86901; 96360; 96523; 99282-25; J1642; J7030

== ENCOUNTER 2024-09-06 02:23 | Day surgery (SDC) | payer OTHER ==
[2024-09-05 13:38] LABS: BASOPHILS PERCENT AUTO 1 % (0-2); EOSINOPHILS PERCENT AUTO 1 % (0-6); Hematocrit 25.7 % (33.0-51.0); Hemoglobin 7.3 g/dL (11.5-16.0); LYMPHOCYTES PERCENT AUTO 29 % (21-46); MONOCYTES ABSOLUTE AUTO 0.58 K/mm3 (0.16-1.47); MONOCYTES PERCENT AUTO 12 % (4-13); Mean Corpuscular HGB 22.1 pg (26.0-34.0); Mean Corpuscular HGB Conc 28.4 g/dL (31.5-36.5); Mean Corpuscular Volume 78 fL (80-100); Platelet Count 246 K/mm3 (150-400); RDW Coefficient Variation 19.2 % (11.7-14.2); RDW Standard Deviation 54.2 fL (35.1-46.3); Red Blood Cell Count 3.31 M/mm3 (3.80-5.20); White Blood Cell Count 4.91 K/mm3 (4.00-11.30)
[2024-09-05 13:40] LABS: BASOPHILS ABSOLUTE AUTO 0.04 K/mm3 (0.00-0.23); EOSINOPHILS ABSOLUTE AUTO 0.05 K/mm3 (0.00-0.68); IMMATURE GRAN ABSOLUTE AUTO 0.03 K/mm3 (0.00-0.10); IMMATURE GRAN PERCENT AUTO 1 % (0-1); LYMPHOCYTES ABSOLUTE AUTO 1.44 K/mm3 (0.84-5.20); NEUTROPHILS ABSOLUTE AUTO 2.76 K/mm3 (1.96-9.15); NEUTROPHILS PERCENT AUTO 56 % (41-73)
[~2024-09-06 02:23] MED LIST changes: +IMIP10 PO; +TIZA4 PO
[2024-09-06] MEDS ORDERED: NS 250 ML IV SCH (06:50)
[2024-09-06 13:35] VITALS: BP 119/65
[2024-09-06 13:57] VITALS: BP 138/75
[2024-09-06 15:03] VITALS: BP 150/82
[2024-09-06 15:20] VITALS: BP 150/82
== END 2024-09-06 15:26 | disposition home or self-care (01) ==
LOC: ATC 02:23 → EDSTATUS 13:30 → ATC 15:26
PROVIDERS: Nurse Practitioner
DX: D50.9 Iron deficiency anemia, unspecified (principal); E78.5 Hyperlipidemia, unspecified; E11.42 Type 2 diabetes mellitus with diabetic polyneuropathy; E11.51 Type 2 diabetes mellitus with diabetic peripheral angiopathy without gangrene; I25.10 Atherosclerotic heart disease of native coronary artery without angina pectoris; Z79.899 Other long term (current) drug therapy
CPT/HCPCS: 36430; 85025; 86850; 86900; 86901; 86923; J1642; J7050; P9016

== ENCOUNTER → 2024-09-19 | Outpatient (CLI) | payer OTHER ==
[2024-09-19 14:00] LABS: BASOPHILS ABSOLUTE AUTO 0.03 K/mm3 (0.00-0.23); BASOPHILS PERCENT AUTO 1 % (0-2); EOSINOPHILS ABSOLUTE AUTO 0.03 K/mm3 (0.00-0.68); EOSINOPHILS PERCENT AUTO 1 % (0-6); Hematocrit 29.4 % (33.0-51.0); Hemoglobin 8.5 g/dL (11.5-16.0); IMMATURE GRAN ABSOLUTE AUTO 0.01 K/mm3 (0.00-0.10); IMMATURE GRAN PERCENT AUTO 0 % (0-1); LYMPHOCYTES ABSOLUTE AUTO 1.34 K/mm3 (0.84-5.20); LYMPHOCYTES PERCENT AUTO 27 % (21-46); MONOCYTES ABSOLUTE AUTO 0.47 K/mm3 (0.16-1.47); MONOCYTES PERCENT AUTO 10 % (4-13); Mean Corpuscular HGB 21.9 pg (26.0-34.0); Mean Corpuscular HGB Conc 28.9 g/dL (31.5-36.5); Mean Corpuscular Volume 76 fL (80-100); NEUTROPHILS ABSOLUTE AUTO 3.03 K/mm3 (1.96-9.15); NEUTROPHILS PERCENT AUTO 62 % (41-73); Platelet Count 249 K/mm3 (150-400); RDW Coefficient Variation 19.6 % (11.7-14.2); RDW Standard Deviation 53.8 fL (35.1-46.3); Red Blood Cell Count 3.88 M/mm3 (3.80-5.20); White Blood Cell Count 4.91 K/mm3 (4.00-11.30)
[2024-09-19 14:06] LABS: Mean Platelet Volume 12.5 fL (9.1-12.4)
== END ==
LOC: LAB 12:00 → LAB SHORT 12:00
PROVIDERS: Nurse Practitioner
DX: D50.9 Iron deficiency anemia, unspecified (principal)
CPT/HCPCS: 85025

== ENCOUNTER 2024-10-01 04:21 | Day surgery (SDC) | payer OTHER ==
[2024-10-01 11:05] VITALS: BP 142/84
== END 2024-10-01 11:05 | disposition home or self-care (01) ==
LOC: ATC 04:21
DX: Z45.2 Encounter for adjustment and management of vascular access device (principal); I12.9 Hypertensive chronic kidney disease with stage 1 through stage 4 chronic kidney disease, or unspecified chronic kidney disease; E11.22 Type 2 diabetes mellitus with diabetic chronic kidney disease; N18.2 Chronic kidney disease, stage 2 (mild); E11.51 Type 2 diabetes mellitus with diabetic peripheral angiopathy without gangrene; E78.5 Hyperlipidemia, unspecified; Z87.891 Personal history of nicotine dependence; Z79.82 Long term (current) use of aspirin; Z79.01 Long term (current) use of anticoagulants; Z79.899 Other long term (current) drug therapy; Z88.6 Allergy status to analgesic agent; Z88.8 Allergy status to other drugs, medicaments and biological substances; Z91.040 Latex allergy status; Z91.018 Allergy to other foods; Z89.612 Acquired absence of left leg above knee
CPT/HCPCS: 96523; J1642

== ENCOUNTER 2024-10-02 01:14 | Day surgery (SDC) | payer OTHER | END 2024-10-02 11:34 | disposition home or self-care (01) | LOC: ATC 01:14 | DX: Z45.2 Encounter for adjustment and management of vascular access device (principal); I12.9 Hypertensive chronic kidney disease with stage 1 through stage 4 chronic kidney disease, or unspecified chronic kidney disease; E11.22 Type 2 diabetes mellitus with diabetic chronic kidney disease; N18.2 Chronic kidney disease, stage 2 (mild); E78.5 Hyperlipidemia, unspecified; E11.51 Type 2 diabetes mellitus with diabetic peripheral angiopathy without gangrene; E11.42 Type 2 diabetes mellitus with diabetic polyneuropathy; D50.9 Iron deficiency anemia, unspecified; Z87.891 Personal history of nicotine dependence; Z79.82 Long term (current) use of aspirin; Z79.01 Long term (current) use of anticoagulants; Z79.899 Other long term (current) drug therapy; Z88.6 Allergy status to analgesic agent; Z88.8 Allergy status to other drugs, medicaments and biological substances; Z91.040 Latex allergy status; Z91.018 Allergy to other foods; Z89.612 Acquired absence of left leg above knee; K92.2 Gastrointestinal hemorrhage, unspecified; Z98.84 Bariatric surgery status; I77.1 Stricture of artery; M51.379 Other intervertebral disc degeneration, lumbosacral region without mention of lumbar back pain or lower extremity pain; M47.816 Spondylosis without myelopathy or radiculopathy, lumbar region; Z98.890 Other specified postprocedural states; Z90.49 Acquired absence of other specified parts of digestive tract; Q63.1 Lobulated, fused and horseshoe kidney; I70.0 Atherosclerosis of aorta; Z95.828 Presence of other vascular implants and grafts; I70.203 Unspecified atherosclerosis of native arteries of extremities, bilateral legs; Z90.710 Acquired absence of both cervix and uterus | CPT/HCPCS: 74177; 96523; J1642; Q9967 ==

== ENCOUNTER 2024-10-31 04:23 | Day surgery (SDC) | payer OTHER ==
[2024-10-31 11:40] VITALS: BP 155/72
[2024-10-31 12:12] LABS: BASOPHILS ABSOLUTE AUTO 0.03 K/mm3 (0.00-0.23); BASOPHILS PERCENT AUTO 1 % (0-2); EOSINOPHILS ABSOLUTE AUTO 0.06 K/mm3 (0.00-0.68); EOSINOPHILS PERCENT AUTO 1 % (0-6); Hemoglobin 12.3 g/dL (11.5-16.0); IMMATURE GRAN ABSOLUTE AUTO 0.01 K/mm3 (0.00-0.10); IMMATURE GRAN PERCENT AUTO 0 % (0-1); LYMPHOCYTES ABSOLUTE AUTO 1.66 K/mm3 (0.84-5.20); LYMPHOCYTES PERCENT AUTO 31 % (21-46); MONOCYTES ABSOLUTE AUTO 0.53 K/mm3 (0.16-1.47); MONOCYTES PERCENT AUTO 10 % (4-13); Mean Corpuscular HGB 28.2 pg (26.0-34.0); Mean Corpuscular HGB Conc 32.4 g/dL (31.5-36.5); Mean Corpuscular Volume 87 fL (80-100); NEUTROPHILS ABSOLUTE AUTO 3.08 K/mm3 (1.96-9.15); NEUTROPHILS PERCENT AUTO 57 % (41-73); Platelet Count 195 K/mm3 (150-400); RDW Coefficient Variation 23.2 % (11.7-14.2); RDW Standard Deviation 71.4 fL (35.1-46.3); Red Blood Cell Count 4.36 M/mm3 (3.80-5.20); White Blood Cell Count 5.37 K/mm3 (4.00-11.30)
[2024-10-31 12:28] LABS: Percent Saturation 22.7 % (15.0-50.0)
== END 2024-10-31 11:44 | disposition home or self-care (01) ==
LOC: ATC 04:23
PROVIDERS: Nurse Practitioner
DX: Z45.2 Encounter for adjustment and management of vascular access device (principal); D50.9 Iron deficiency anemia, unspecified; E11.42 Type 2 diabetes mellitus with diabetic polyneuropathy; E11.51 Type 2 diabetes mellitus with diabetic peripheral angiopathy without gangrene; I25.10 Atherosclerotic heart disease of native coronary artery without angina pectoris; I10 Essential (primary) hypertension; E78.5 Hyperlipidemia, unspecified; Z87.891 Personal history of nicotine dependence; Z79.82 Long term (current) use of aspirin; Z79.01 Long term (current) use of anticoagulants; Z79.899 Other long term (current) drug therapy; Z91.018 Allergy to other foods; Z91.040 Latex allergy status; Z88.8 Allergy status to other drugs, medicaments and biological substances; Z89.612 Acquired absence of left leg above knee
CPT/HCPCS: 36591; 82728; 83540; 83550; 85025; J1642

== ENCOUNTER 2024-12-05 01:01 | Day surgery (SDC) | payer OTHER ==
[2024-12-05 11:37] VITALS: BP 155/101
[2024-12-05] MEDS ORDERED: DOXE10 PO (11:41)
== END 2024-12-05 11:41 | disposition home or self-care (01) ==
LOC: ATC 01:01
DX: D50.9 Iron deficiency anemia, unspecified (principal); I10 Essential (primary) hypertension; E78.5 Hyperlipidemia, unspecified; E11.42 Type 2 diabetes mellitus with diabetic polyneuropathy; I25.10 Atherosclerotic heart disease of native coronary artery without angina pectoris; Z87.891 Personal history of nicotine dependence; Z79.899 Other long term (current) drug therapy; Z79.82 Long term (current) use of aspirin; Z79.01 Long term (current) use of anticoagulants; Z88.8 Allergy status to other drugs, medicaments and biological substances
CPT/HCPCS: 96523; J1642

== ENCOUNTER 2025-01-02 02:03 | Day surgery (SDC) | payer OTHER ==
[~2025-01-02 02:03] MED LIST changes: +DOXE10 PO
[2025-01-02 11:59] LABS: BASOPHILS ABSOLUTE AUTO 0.03 K/mm3 (0.00-0.23); BASOPHILS PERCENT AUTO 1 % (0-2); EOSINOPHILS ABSOLUTE AUTO 0.03 K/mm3 (0.00-0.68); EOSINOPHILS PERCENT AUTO 1 % (0-6); Hematocrit 35.9 % (33.0-51.0); IMMATURE GRAN ABSOLUTE AUTO 0.01 K/mm3 (0.00-0.10); IMMATURE GRAN PERCENT AUTO 0 % (0-1); LYMPHOCYTES ABSOLUTE AUTO 1.96 K/mm3 (0.84-5.20); LYMPHOCYTES PERCENT AUTO 40 % (21-46); MONOCYTES ABSOLUTE AUTO 0.48 K/mm3 (0.16-1.47); MONOCYTES PERCENT AUTO 10 % (4-13); Mean Corpuscular HGB 29.9 pg (26.0-34.0); Mean Corpuscular HGB Conc 33.4 g/dL (31.5-36.5); Mean Corpuscular Volume 90 fL (80-100); Mean Platelet Volume 12.5 fL (9.1-12.4); NEUTROPHILS ABSOLUTE AUTO 2.41 K/mm3 (1.96-9.15); NEUTROPHILS PERCENT AUTO 49 % (41-73); Platelet Count 184 K/mm3 (150-400); RDW Coefficient Variation 12.7 % (11.7-14.2); RDW Standard Deviation 40.9 fL (35.1-46.3); Red Blood Cell Count 4.01 M/mm3 (3.80-5.20); White Blood Cell Count 4.92 K/mm3 (4.00-11.30)
[2025-01-02 12:33] LABS: CHOL/HDL RATIO 2.7; Cholesterol 138 mg/dL (50-200); Ferritin, Serum 6 ng/mL (8-252); HDL Cholesterol 52 mg/dL (>39); Iron Serum 36 ug/dL (50-170); LDL/HDL RATIO 1.2; Low Density Lipoprotein Chol 60 mg/dL (0-110); Percent Saturation 11.1 % (15.0-50.0); Total Iron Binding Capacity 325 ug/dL (250-450); Triglycerides 130 mg/dL (30-160); Very Low Density Lipoprot Chol 26 mg/dL (6-32)
== END 2025-01-02 11:33 | disposition home or self-care (01) ==
LOC: ATC 02:03
PROVIDERS: Student in an Organized Health Care Education/Training Program
DX: D50.9 Iron deficiency anemia, unspecified (principal); E78.5 Hyperlipidemia, unspecified; I10 Essential (primary) hypertension; E11.42 Type 2 diabetes mellitus with diabetic polyneuropathy; I25.10 Atherosclerotic heart disease of native coronary artery without angina pectoris; Z79.899 Other long term (current) drug therapy; Z87.891 Personal history of nicotine dependence; Z88.8 Allergy status to other drugs, medicaments and biological substances; Z91.040 Latex allergy status
CPT/HCPCS: 36591; 80061; 82728; 83540; 83550; 85025; J1642

== ENCOUNTER 2025-01-30 00:30 | Day surgery (SDC) | payer OTHER | END 2025-01-30 11:58 | disposition home or self-care (01) | LOC: ATC 00:30 | DX: D50.9 Iron deficiency anemia, unspecified (principal); I10 Essential (primary) hypertension; E78.5 Hyperlipidemia, unspecified; E11.42 Type 2 diabetes mellitus with diabetic polyneuropathy; I25.10 Atherosclerotic heart disease of native coronary artery without angina pectoris; Z87.891 Personal history of nicotine dependence; Z88.5 Allergy status to narcotic agent; Z79.01 Long term (current) use of anticoagulants; Z79.82 Long term (current) use of aspirin; Z79.899 Other long term (current) drug therapy | CPT/HCPCS: 96523; J1642 ==

== ENCOUNTER 2025-02-28 03:46 | Day surgery (SDC) | payer OTHER ==
[2025-02-28 11:45] VITALS: BP 129/77
[2025-02-28 12:25] LABS: BASOPHILS ABSOLUTE AUTO 0.02 K/mm3 (0.00-0.23); BASOPHILS PERCENT AUTO 0 % (0-2); EOSINOPHILS ABSOLUTE AUTO 0.03 K/mm3 (0.00-0.68); EOSINOPHILS PERCENT AUTO 1 % (0-6); Hemoglobin 11.7 g/dL (11.5-16.0); IMMATURE GRAN ABSOLUTE AUTO 0.01 K/mm3 (0.00-0.10); IMMATURE GRAN PERCENT AUTO 0 % (0-1); LYMPHOCYTES ABSOLUTE AUTO 1.26 K/mm3 (0.84-5.20); LYMPHOCYTES PERCENT AUTO 26 % (21-46); MONOCYTES ABSOLUTE AUTO 0.44 K/mm3 (0.16-1.47); MONOCYTES PERCENT AUTO 9 % (4-13); Mean Corpuscular HGB 29.5 pg (26.0-34.0); Mean Corpuscular HGB Conc 32.5 g/dL (31.5-36.5); Mean Corpuscular Volume 91 fL (80-100); Mean Platelet Volume 12.5 fL (9.1-12.4); NEUTROPHILS ABSOLUTE AUTO 3.14 K/mm3 (1.96-9.15); NEUTROPHILS PERCENT AUTO 64 % (41-73); Platelet Count 204 K/mm3 (150-400); RDW Coefficient Variation 13.2 % (11.7-14.2); RDW Standard Deviation 43.5 fL (35.1-46.3); Red Blood Cell Count 3.97 M/mm3 (3.80-5.20)
[2025-02-28 12:58] LABS: Albumin, Blood 3.5 g/dL (3.4-5.0); Bilirubin, Total 0.3 mg/dL (0.1-1.0); Bun/Creatinine Ratio 19.9 (12.0-20.0); Calcium, Blood 8.2 mg/dL (8.5-10.1); Creatinine, Blood 0.55 mg/dL (0.40-1.00); Globulin, Blood 3.4 g/dL (2.2-4.0); Percent Saturation 10.1 % (15.0-50.0); Potassium, Blood 3.8 mmol/L (3.5-5.5); Thyroid Stimulating Hormone 1.56 uIU/mL (0.360-4.800); Total Protein, Blood 6.9 g/dL (6.4-8.2)
== END 2025-02-28 12:00 | disposition home or self-care (01) ==
LOC: ATC 03:46
PROVIDERS: Student in an Organized Health Care Education/Training Program
DX: D50.9 Iron deficiency anemia, unspecified (principal); E11.42 Type 2 diabetes mellitus with diabetic polyneuropathy; E78.5 Hyperlipidemia, unspecified; I10 Essential (primary) hypertension; I25.10 Atherosclerotic heart disease of native coronary artery without angina pectoris; Z87.891 Personal history of nicotine dependence; Z79.01 Long term (current) use of anticoagulants; Z79.82 Long term (current) use of aspirin; Z79.899 Other long term (current) drug therapy
CPT/HCPCS: 36591; 80053; 82728; 83540; 83550; 84443; 85025; J1642

== ENCOUNTER 2025-05-23 03:01 | Day surgery (SDC) | payer OTHER ==
[~2025-05-23 03:01] MED LIST changes: +EZET10 PO; +PREG25 PO
[2025-05-23 11:39] VITALS: BP 158/84
[2025-05-23 11:53] LABS: BASOPHILS ABSOLUTE AUTO 0.03 K/mm3 (0.00-0.23); BASOPHILS PERCENT AUTO 1 % (0-2); EOSINOPHILS ABSOLUTE AUTO 0.02 K/mm3 (0.00-0.68); EOSINOPHILS PERCENT AUTO 0 % (0-6); Hematocrit 40.8 % (33.0-51.0); Hemoglobin 13.4 g/dL (11.5-16.0); IMMATURE GRAN ABSOLUTE AUTO 0.00 K/mm3 (0.00-0.10); IMMATURE GRAN PERCENT AUTO 0 % (0-1); LYMPHOCYTES ABSOLUTE AUTO 1.42 K/mm3 (0.84-5.20); LYMPHOCYTES PERCENT AUTO 28 % (21-46); MONOCYTES ABSOLUTE AUTO 0.48 K/mm3 (0.16-1.47); MONOCYTES PERCENT AUTO 10 % (4-13); Mean Corpuscular HGB Conc 32.8 g/dL (31.5-36.5); Mean Corpuscular Volume 91 fL (80-100); NEUTROPHILS ABSOLUTE AUTO 3.05 K/mm3 (1.96-9.15); NEUTROPHILS PERCENT AUTO 61 % (41-73); NRBC ABSOLUTE 0.00 K/mm3 (0.00-0.02); NRBC Auto 0.0 /100 WBC (0.0-0.2); Platelet Count 220 K/mm3 (150-400); RDW Coefficient Variation 13.2 % (11.7-14.2); RDW Standard Deviation 44.2 fL (35.1-46.3)
[2025-05-23 12:31] LABS: Prothrombin Time Results 11.7 Sec (9.7-11.5)
[2025-05-23 13:09] LABS: Anion Gap 6.0 mmol/L (3-11); Blood Urea Nitrogen 11.0 mg/dL (8-24); CO2, Blood 25.0 mmol/L (21-32); Calcium, Blood 8.9 mg/dL (8.5-10.1); Chloride, Blood 110.0 mmol/L (98-108); Creatinine, Blood 0.54 mg/dL (0.40-1.00); Ferritin, Serum 13.0 ng/mL (8-252); Glucose, Blood 146.0 mg/dL (70-99); Potassium, Blood 4.3 mmol/L (3.5-5.5); Sodium, Blood 137.0 mmol/L (136-145); Total Iron Binding Capacity 291.0 ug/dL (250-450)
== END 2025-05-23 11:39 | disposition home or self-care (01) ==
LOC: ATC 03:01
PROVIDERS: Student in an Organized Health Care Education/Training Program
DX: D50.9 Iron deficiency anemia, unspecified (principal); E11.42 Type 2 diabetes mellitus with diabetic polyneuropathy; E11.51 Type 2 diabetes mellitus with diabetic peripheral angiopathy without gangrene; E78.5 Hyperlipidemia, unspecified; I25.83 Coronary atherosclerosis due to lipid rich plaque; I25.118 Atherosclerotic heart disease of native coronary artery with other forms of angina pectoris; I10 Essential (primary) hypertension; Z98.61 Coronary angioplasty status; Z87.891 Personal history of nicotine dependence; Z79.82 Long term (current) use of aspirin; Z79.899 Other long term (current) drug therapy; Z88.8 Allergy status to other drugs, medicaments and biological substances; Z91.018 Allergy to other foods; Z91.040 Latex allergy status
CPT/HCPCS: 36591; 80048; 82728; 83540; 83550; 85025; 85610; J1642

== ENCOUNTER 2025-05-26 10:47 | Day surgery (SDC) | payer OTHER ==
[2025-05-26] VITALS (7 sets, daily range): BP systolic 90–129; BP diastolic 63–109
[~2025-05-26] VITALS: Ht 142.2 cm; Wt 60.3 kg
[2025-05-26] MEDS ORDERED: NS 1,000 ML IV ONE ×2 (12:00→12:31)
[2025-05-26] MEDS ORDERED: Nitroglycerin 2 MG/20 ML BTL ONE (12:00)
[2025-05-26] MEDS ORDERED: NS 250 ML IV ONE (12:00)
[2025-05-26] MEDS ORDERED: Verapamil HCL 2.5 MG/ML 2ML Injection ONE (12:00)
[2025-05-26] MEDS ORDERED: Heparin Sodium 1000 Units/ML 10ML MDV ONE ×2 (12:00→12:45)
[2025-05-26] MEDS ORDERED: FentaNYL Citrate 50 MCG/ML 2 ML Injection ONE (12:45)
[2025-05-26] MEDS ORDERED: Midazolam HCl 1MG / ML 2ML Vial ONE (12:45)
--- NOTE | 2025-05-26 13:58 | NUR ---
PT BACK TO RECOVERY ROOM. PT LAYING FLAT. REMINDED TO KEEP L LEG AND HEAD FLAT. L GROIN SITE IS SOFT, NON TENDER.
--- NOTE | 2025-05-26 15:41 | NUR ---
PT STS SHE HAS TO LEAVE [id number], STS SHE UNDERSTANDS THE RISK OF BLEEDING. DR BEARDEN NOTIFIED. L GROIN SITE IS SOFT, NO BLEEDING, OOZING OR HEAMATOMA. PT REMINDED OF RISK OF BLEEDING AND IMPORTANTCE OF NOT STRAINING AT HOME. PT STS SHE HAS A LIFE ALERT BRACELET AT HOME AND PLANS TO GO HOME AND LAY DOWN. MEDIPORT WAS HEPARIN LOCKED AND REMOVED. LAST SET OF VITALS STABLE. PT UP AND DRESSED WITH HELP OF FAMILY. L GROIN SOFT, NO BLEEDING. PT AND FAMILY VERBALIZE D/C INSTRUCTIONS.
--- NOTE | 2025-05-26 16:04 | NUR ---
PT WHEELED OUT TO CARE. D/C PAPERWORK WITH FAMILY.
== END 2025-05-26 16:00 | disposition home or self-care (01) ==
LOC: MHTC 10:47
DX: I25.118 Atherosclerotic heart disease of native coronary artery with other forms of angina pectoris (principal); I25.83 Coronary atherosclerosis due to lipid rich plaque; E11.51 Type 2 diabetes mellitus with diabetic peripheral angiopathy without gangrene; E11.42 Type 2 diabetes mellitus with diabetic polyneuropathy; I74.3 Embolism and thrombosis of arteries of the lower extremities; I11.0 Hypertensive heart disease with heart failure; I50.9 Heart failure, unspecified; Z79.82 Long term (current) use of aspirin; Z79.899 Other long term (current) drug therapy; Z88.6 Allergy status to analgesic agent; Z91.040 Latex allergy status; Z88.8 Allergy status to other drugs, medicaments and biological substances; Z91.018 Allergy to other foods; Z87.891 Personal history of nicotine dependence
CPT/HCPCS: 76937; 93458; 99152; 99153; C1769; C1894; J1642; J1644; J2250; J3010; J7030; J7050; Q9967

== ENCOUNTER 2025-06-25 04:22 | Day surgery (SDC) | payer OTHER ==
[2025-06-25 11:41] VITALS: BP 130/79
== END 2025-06-25 11:46 | disposition home or self-care (01) ==
LOC: ATC 04:22
DX: D50.9 Iron deficiency anemia, unspecified (principal); E11.51 Type 2 diabetes mellitus with diabetic peripheral angiopathy without gangrene; I25.10 Atherosclerotic heart disease of native coronary artery without angina pectoris; I10 Essential (primary) hypertension; E78.5 Hyperlipidemia, unspecified; Z87.891 Personal history of nicotine dependence; Z79.82 Long term (current) use of aspirin; Z79.899 Other long term (current) drug therapy; Z88.8 Allergy status to other drugs, medicaments and biological substances; Z91.040 Latex allergy status; Z91.018 Allergy to other foods; Z89.612 Acquired absence of left leg above knee
CPT/HCPCS: 96523; J1642

== ENCOUNTER 2025-07-28 01:13 | Day surgery (SDC) | payer OTHER ==
[2025-07-28 13:34] VITALS: BP 132/76
[2025-07-28 15:16] LABS: BASOPHILS ABSOLUTE AUTO 0.02 K/mm3 (0.00-0.23); BASOPHILS PERCENT AUTO 0 % (0-2); EOSINOPHILS ABSOLUTE AUTO 0.03 K/mm3 (0.00-0.68); EOSINOPHILS PERCENT AUTO 1 % (0-6); Hematocrit 31.9 % (33.0-51.0); Hemoglobin 9.7 g/dL (11.5-16.0); IMMATURE GRAN ABSOLUTE AUTO 0.01 K/mm3 (0.00-0.10); IMMATURE GRAN PERCENT AUTO 0 % (0-1); LYMPHOCYTES ABSOLUTE AUTO 1.29 K/mm3 (0.84-5.20); LYMPHOCYTES PERCENT AUTO 25 % (21-46); MONOCYTES ABSOLUTE AUTO 0.41 K/mm3 (0.16-1.47); MONOCYTES PERCENT AUTO 8 % (4-13); Mean Corpuscular HGB Conc 30.4 g/dL (31.5-36.5); Mean Corpuscular Volume 87 fL (80-100); NEUTROPHILS ABSOLUTE AUTO 3.33 K/mm3 (1.96-9.15); NEUTROPHILS PERCENT AUTO 65 % (41-73); NRBC ABSOLUTE 0.00 K/mm3 (0.00-0.02); NRBC Auto 0.0 /100 WBC (0.0-0.2); Platelet Count 242 K/mm3 (150-400); RDW Coefficient Variation 13.4 % (11.7-14.2); RDW Standard Deviation 42.4 fL (35.1-46.3)
[2025-07-28 15:56] LABS: Ferritin, Serum 3.0 ng/mL (8-252); Total Iron Binding Capacity 348.0 ug/dL (250-450)
== END 2025-07-28 13:46 | disposition home or self-care (01) ==
LOC: ATC 01:13
PROVIDERS: Nurse Practitioner
DX: Z45.2 Encounter for adjustment and management of vascular access device (principal); D50.9 Iron deficiency anemia, unspecified; E78.5 Hyperlipidemia, unspecified; E11.42 Type 2 diabetes mellitus with diabetic polyneuropathy; I10 Essential (primary) hypertension; I25.10 Atherosclerotic heart disease of native coronary artery without angina pectoris; E11.51 Type 2 diabetes mellitus with diabetic peripheral angiopathy without gangrene; Z87.891 Personal history of nicotine dependence; Z79.01 Long term (current) use of anticoagulants; Z79.899 Other long term (current) drug therapy; Z88.8 Allergy status to other drugs, medicaments and biological substances; Z89.612 Acquired absence of left leg above knee
CPT/HCPCS: 36591; 82728; 83540; 83550; 85025; J1642

== ENCOUNTER 2025-09-05 00:44 | Day surgery (SDC) | payer OTHER ==
[2025-09-05 11:38] VITALS: BP 121/78
[2025-09-05 12:37] LABS: BASOPHILS ABSOLUTE AUTO 0.03 K/mm3 (0.00-0.23); BASOPHILS PERCENT AUTO 1 % (0-2); EOSINOPHILS ABSOLUTE AUTO 0.02 K/mm3 (0.00-0.68); EOSINOPHILS PERCENT AUTO 1 % (0-6); Hematocrit 38.6 % (33.0-51.0); Hemoglobin 12.1 g/dL (11.5-16.0); IMMATURE GRAN ABSOLUTE AUTO 0.01 K/mm3 (0.00-0.10); IMMATURE GRAN PERCENT AUTO 0 % (0-1); LYMPHOCYTES ABSOLUTE AUTO 1.38 K/mm3 (0.84-5.20); LYMPHOCYTES PERCENT AUTO 32 % (21-46); MONOCYTES ABSOLUTE AUTO 0.52 K/mm3 (0.16-1.47); MONOCYTES PERCENT AUTO 12 % (4-13); Mean Corpuscular HGB Conc 31.3 g/dL (31.5-36.5); Mean Corpuscular Volume 90 fL (80-100); NEUTROPHILS ABSOLUTE AUTO 2.32 K/mm3 (1.96-9.15); NEUTROPHILS PERCENT AUTO 54 % (41-73); NRBC ABSOLUTE 0.00 K/mm3 (0.00-0.02); NRBC Auto 0.0 /100 WBC (0.0-0.2); Platelet Count 203 K/mm3 (150-400); RDW Coefficient Variation 21.0 % (11.7-14.2); RDW Standard Deviation 69.0 fL (35.1-46.3)
[2025-09-05 13:05] LABS: Ferritin, Serum 68.0 ng/mL (8-252); Total Iron Binding Capacity 277.0 ug/dL (250-450)
== END 2025-09-05 11:48 | disposition home or self-care (01) ==
LOC: ATC 00:44
PROVIDERS: Nurse Practitioner
DX: D50.0 Iron deficiency anemia secondary to blood loss (chronic) (principal); Z87.19 Personal history of other diseases of the digestive system; I25.10 Atherosclerotic heart disease of native coronary artery without angina pectoris; E11.51 Type 2 diabetes mellitus with diabetic peripheral angiopathy without gangrene; E78.5 Hyperlipidemia, unspecified; Z87.891 Personal history of nicotine dependence; Z79.01 Long term (current) use of anticoagulants; Z79.899 Other long term (current) drug therapy; Z91.040 Latex allergy status; Z88.8 Allergy status to other drugs, medicaments and biological substances; Z91.018 Allergy to other foods; Z98.84 Bariatric surgery status
CPT/HCPCS: 36415; 36591; 82728; 83540; 83550; 85025; J1642

== ENCOUNTER 2025-10-02 02:25 | Day surgery (SDC) | payer OTHER ==
[2025-10-02 11:50] VITALS: BP 114/84
== END 2025-10-02 12:00 | disposition home or self-care (01) ==
LOC: ATC 02:25
DX: D50.9 Iron deficiency anemia, unspecified (principal); E11.42 Type 2 diabetes mellitus with diabetic polyneuropathy; E78.5 Hyperlipidemia, unspecified; G89.29 Other chronic pain; I10 Essential (primary) hypertension; I25.10 Atherosclerotic heart disease of native coronary artery without angina pectoris; E11.51 Type 2 diabetes mellitus with diabetic peripheral angiopathy without gangrene; Z87.891 Personal history of nicotine dependence; Z79.01 Long term (current) use of anticoagulants; Z79.82 Long term (current) use of aspirin; Z79.84 Long term (current) use of oral hypoglycemic drugs; Z79.899 Other long term (current) drug therapy; Z88.8 Allergy status to other drugs, medicaments and biological substances; Z91.018 Allergy to other foods; Z91.040 Latex allergy status; Z89.612 Acquired absence of left leg above knee
CPT/HCPCS: 96523; J1642